=== PATIENT | female | born 2000 | race Caucasian/White ===

== ENCOUNTER 2020-12-03 17:25 | Emergency (ER) | payer OTHER, SELFPAY ==
[2020-12-03 17:43] VITALS: BP 126/77; PULSE 93; RESP 16; TEMP 36.9; O2SAT 100
--- NOTE | 2020-12-03 18:14 | ED.URI ---
HPI - URI/Sore Throat General Chief Complaint: Skin/Abscess/Foreign Body Stated Complaint: sun burn Time Seen by Provider: 12/03/20 18:14 Source: patient Mode of arrival: ambulatory Limitations: no limitations History of Present Illness HPI Narrative: Linh Sanchez is a 20 yo female with PMH anxiety who comes to express care with nasal congestion and sore throat x3 days she states she had a fever on and off. States cannot eat or drink because is difficult to swallow. She is a smoker but has not been smoking since she had a sore throat Related Data Allergies Allergy/AdvReac Type Severity Reaction Status Date / Time NKDA Allergy Unknown Uncoded 12/17/02 13:33 NKFA Allergy Unknown Uncoded 12/17/02 13:33 Review of Systems Review of Systems: Narrative: CONSTITUTIONAL: Denies fever, chills, sweats. EYES: Denies visual changes, redness, discharge. ENT: Denies rhinorrhea, has congestion, has sore throat, bilateral otalgia. CARDIOVASCULAR: Denies chest pain, palpitations, edema. RESPIRATORY: Denies dyspnea, wheezing, mild cough GASTROINTESTINAL: Denies abdominal pain, nausea, vomiting, diarrhea. GENITOURINARY: Denies dysuria, hematuria, abnormal discharge SKIN: Denies rash or itching. NEUROLOGIC: Denies numbness, or focal weakness. PSYCHIATRIC: Denies anxiety or depression. PMFSH Past Medical History Medical History No active medical problems Family History Family History (Updated 12/03/20 @ 18:20 by Diamond Zazueta CNP) Mother Hypertension Social History Social History (Updated 12/03/20 @ 18:20 by Diamond Zazueta CNP) Smoking packs per day: 1 Smoking cigarettes per day: 20.0 Smoking status: Current every day smoker Alcohol intake: current Gender identity (if verbalized by the patient): Female Comments At time of signature, I agree with nursing past medical, surgical, social and family history. There is no relevant family history pertinent to the presenting complaint. Exam Narrative: Exam Narrative: GENERAL: This is a well-nourished, well-developed patient, in mild distress. HEAD: normocephalic, atraumatic. EYES: Sclera clear/white. Vision is grossly intact. EARS: External ears normal, auditory canals erythema with fluid behind TMs. Hearing grossly intact. NOSE: External nose normal without nasal discharge, nares without redness, mild rhinorrhea. THROAT: Mucous membranes moist, posterior pharynx erythema with uvula very red NECK: Neck supple, tender submandibular lymph nodes that are quite large CARDIOVASCULAR: Regular rate and rhythm without murmurs, gallops, or rubs. RESPIRATORY: Clear to auscultation. Breath sounds equal bilaterally. No wheezes, rales, or rhonchi. GASTROINTESTINAL: Abdomen soft, SKIN: warm, intact with no suspicious lesions or rash, good texture and turgor. NEURO: awake, alert, and oriented to person, place and time. There were no obvious focal neurologic abnormalities. Steady gait EXTREMITIES: Normal range of motion. BACK: Nontender without deformity Course Course Emergency Course: [facility] of scratchy sore throat and sinus symptoms for the last 3 days they have gotten worse she cannot eat or drink says she is running subjective fever Strep test negative Covid test negative Throat is significantly swollen and as well as lymph nodes treated with started on clindamycin 300 mg 3 times daily x10 days, prednisone 40 mg x 5 days, cepacol lozenges Vital Signs Vital signs: Vital Signs Temperature 98.5 F 12/03/20 17:43 Pulse Rate 93 12/03/20 17:43 Respiratory Rate 16 12/03/20 17:43 Blood Pressure 126/77 12/03/20 17:43 Pulse Oximetry 100 12/03/20 17:43 Temperature 98.5 F 12/03/20 17:43 Pulse Rate 93 12/03/20 17:43 Respiratory Rate 16 12/03/20 17:43 Blood Pressure 126/77 12/03/20 17:43 Pulse Oximetry 100 12/03/20 17:43 MDM - URI/Sore Throat Differen
== END 2020-12-03 18:35 | disposition home or self-care (01) ==
PROVIDERS: Emergency Provider Nurse Practitioner
DX: J03.90 Acute tonsillitis, unspecified (principal); Z20.822 Contact with and (suspected) exposure to COVID-19; F17.210 Nicotine dependence, cigarettes, uncomplicated
CPT/HCPCS: 87081; 87426; 87880; 99213; C9803; G0463

== ENCOUNTER 2021-01-14 19:39 | Observation (INO) | payer OTHER, SELFPAY ==
[2021-01-14] VITALS (18 sets, daily range): BP systolic 124–161; BP diastolic 86–99; PULSE 84–119; RESP 12–24; TEMP 36.8; O2SAT 95–99
--- NOTE | 2021-01-14 19:58 | ECG_ITS ---
Measurements Intervals [place] Rate: 120 P: 82 LA: 139 QRS: 34 QRSD: 98 T: 50 QT: 319 QTc: 452 Interpretive Statements SINUS TACHYCARDIA BORDERLINE R WAVE PROGRESSION, ANTERIOR LEADS BORDERLINE T WAVE ABNORMALITY- INFERIOR LEADS BASELINE ARTIFACT- I, II, III, AVR, AVL, AVF, V1-V6 ABNORMAL ECG Electronically Signed On 01-14-2021 21:07:37 CDT by Rui Aceves D.O.
--- NOTE | 2021-01-14 20:03 | PC.NURSE ---
Patient states today I just wasnt feeling happy. And is why she took the meds and cut herself.
--- NOTE | 2021-01-14 20:04 | ED.OVERDOSE ---
HPI - Overdose General Chief Complaint: Overdose Stated Complaint: took a bunch of pills Time Seen by Provider: 01/14/21 20:01 Source: RN notes reviewed History of Present Illness HPI Narrative: Patient presents emergency department for overdose. Patient states that she overdosed on her prescription depression medication as well as prednisone approximately at 6:15 PM tonight. Patient states that she believes the prednisone tablets were 20 mg and she had them for her back pain and believes she took approximately 20 of them and then she states she is unsure of the name of her depression medication she states she recently moved from [place] to [place] getting the medicine [place]. She states she also did cut her right wrist with a razor blade she denies any other trauma or injury states she has tried to harm herself before in the past. Patient states she was sad today did not want a live anymore she denies any recent illness Related Data Allergies Allergy/AdvReac Type Severity Reaction Status Date / Time Penicillins Allergy Anaphylaxis Verified 01/14/21 19:59 Review of Systems Review of Systems: Narrative: Gen.: Denies fevers or chills Eyes: Denies eye pain or visual change ENT: Denies congestion Respiratory: Denies shortness of breath or cough CV: Denies chest pain or palpitations GI: Denies abdominal pain nausea, emesis or diarrhea Musculoskeletal: Denies back pain or muscle pain Neuro: Denies numbness, tingling, weakness or focal weakness Skin: See HPI Except as documented, all other systems reviewed and negative [facility] Past Medical History Medical History (Updated 01/14/21 @ 22:04 by Vidal Hensley DO) Depression No active medical problems Family History Family History (Updated 12/03/20 @ 18:20 by Diamond Zazueta CNP) Mother Hypertension Social History Social History Smoking packs per day: 1 Smoking cigarettes per day: 20.0 Smoking status: Current every day smoker Alcohol intake: current Substance use type: marijuana Gender identity (if verbalized by the patient): Female Exam Narrative: Exam Narrative: APPEARANCE: No acute distress, nontoxic, resting in bed EYES: EOMI HEENT: Normocephalic, atraumatic, OMM RESPIRATORY: No respiratory distress Clear to auscultation bilaterally with no rhonchi wheezing or rales. CARDIOVASCULAR: Regular rate and rhythm without murmurs rubs or gallops. ABDOMINAL: Soft, nontender, nondistended, no rebound or guarding MUSCULOSKELETAl: Moves all extremities. No clubbing, cyanosis or edema. NEURO: Awake and alert. Following commands, speech normal, no focal deficits SKIN:: Warm, dry. Numerous horizontal superficial abrasions over the right forearm that are linear no active bleeding or signs of infection radial pulse 2+ neurovascular intact PSYCHIATRIC: Flat affect, positive suicidal ideation denies homicidal ideation, Course Course Emergency Course: Reviewed home medications it appears the patient has been on Lexapro I asked her if this is what she took and she is unsure Poison control was notified recommends supportive care Called and discussed Dr. Patiño presentation and work-up agrees with admission ICU at this time Discussed with Dr. Espinoza presentation work-up agrees with admission at this time Discussed with patient and family results of workup and diagnosis. Discussed need for admission. Patient and family understand and agree to current treatment plan Vital Signs Vital signs: Vital Signs Temperature 98.3 F 01/14/21 19:42 Pulse Rate 119 H 01/14/21 19:42 Respiratory Rate 22 H 01/14/21 19:42 Blood Pressure 161/99 H 01/14/21 19:42 Pulse Oximetry 99 01/14/21 19:42 Temperature 98.3 F 01/14/21 19:42 Pulse Rate 119 H 01/14/21 19:42 Respiratory Rate 19 01/14/21 19:42 Blood Pressure 161/99 H 01/14/21 19:42 Pulse Oximetry 99 01/14/21 19:42 MDM - Overdose Lab Data Result
[2021-01-14 20:10] LABS: Basophils Absolute Auto 0.1 K/mm3 (0.0-0.1); Basophils Percent Auto 0.6 % (0.2-1.2); Eosinophils Absolute Auto 0.2 K/mm3 (0-0.3); Eosinophils Percent Auto 1.3 % (0-4.4); Hematocrit 45.9 % (37.0-47.0); Hemoglobin 15.2 g/dL (12.0-15.0); Immature Granulocyte Absolute 0.04 K/mm3 (0.00-0.031); Immature Granulocyte Percent A 0.3 % (0-0.5); Lymphocytes Absolute Auto 3.42 K/mm3 (0.9-3.2); Lymphocytes Percent Auto 23.3 % (18.3-44.2); Mean Corpuscular HGB Conc 33.1 g/dl (32-36); Mean Corpuscular Hemoglobin 29.5 pg (26-34); Mean Platelet Volume 9.4 fl (7.4-10.4); Monocytes Absolute Auto 1.1 K/mm3 (0.1-0.6); Monocytes Percent Auto 7.4 % (2.6-8.5); Neutrophils Absolute Auto 9.8 K/mm3 (1.3-6.7); Neutrophils Percent Auto 67.1 % (45.5-73.1); Platelet Count Result 473 k/mm3 (150-375); Red Blood Count 5.16 M/mm3 (4.2-5.4); Red Cell Distribution Width 12.7 % (11.5-14.5); White Blood Count 14.7 K/mm3 (4.5-10.0)
--- NOTE | 2021-01-14 20:13 | PC.NURSE ---
@ 2006-poison control - prednisone - no clinical problem, rare to od, zero affects suspected, expect stomach upset lexapro - max of 5 x therapeutic dose (if patient takes 1 tablet per day max dose is 5 tablets = toxicity) 5 hour peak 27-32 hour half life things to watch for - DANCING MASTER depression, coma, seizure, tachacardia, n/v, qt prolongation, widened QRS, HTN and Hypotension, seratonin toxicity we need to rule out co-ingestions - tylenol level, etoh, uds, ekg, night monitor, watch QT and QRS symptomatic support - may give fluids and pressers as needed, benzo - 1st line seizures, draw potassium and Magnesium level
[2021-01-14 20:21] LABS: Acetaminophen < 10 ug/mL (10-30); Ethanol < 10 mg/dL (<10); Salicylate < 1.0 mg/dL (2-20)
[2021-01-14 20:23] LABS: Alanine Aminotransferase 54 U/L (4-35); Albumin Level 4.7 g/dL (3.5-5.1); Alkaline Phosphatase 99 U/L (38-126); Anion Gap 13 mmol/L (8-16); Aspartate Amino Transferase 48 U/L (14-36); Bilirubin,Total 0.8 mg/dL (0.2-1.3); Blood Urea Nitrogen 12 mg/dL (7-17); Calcium 9.8 mg/dL (8.4-10.2); Carbon Dioxide 20 mmol/L (22-30); Chloride 108 mmol/L (98-107); Estimated Glomerular Filt Rate > 60; Glucose 84 mg/dL (65-110); Potassium 3.5 mmol/L (3.4-5.0); Sodium 141 mmol/L (137-145)
[2021-01-14 20:24] LABS: Add Urine Microscopic? YES; Appearance Urine Cloudy (Clear); Bacteria Urine Trace /hpf; Bilirubin Urine Negative (Negative); Blood Urine Negative (Negative); Color Urine Amber (Yellow); Glucose Urine UA Negative (Negative); Ketones Urine Trace mg/dL (Negative); Leukocyte Esterase Ur 1+ LEU/UL (Negative); Mucus Urine Heavy /lpf; Nitrate Urine Negative (Negative); Protein Urine 1+ mg/dL (Negative); Squamous Epithelial Cell Urine Many /hpf (Few); WBC Urine 16-20 /hpf
[2021-01-14] MEDS: SODIUM CHLORIDE 0.9% IV 1,000 ML 999 ML IV CONT (20:31)
[2021-01-14 20:51] LABS: Amphetamine Screen Urine Negative (Negative); Barbiturate Screen Urine Negative (Negative); Benzodiazepines Screen Urine Negative (Negative); Cannabinoid Screen Urine Positive (Negative); Cocaine Screen Urine Negative (Negative); Methadone Screen Urine Negative (Negative); Opiate Screen Urine Negative (Negative); Phencyclidine Screen Urine Negative (Negative)
[2021-01-14 20:52] LABS: Magnesium 2.1 mg/dL (1.6-2.3)
--- NOTE | 2021-01-14 20:55 | ECG_ITS ---
Measurements Intervals [place] Rate: 94 P: 50 [place]: 151 QRS: 4 QRSD: 108 T: 11 QT: 353 QTc: 444 Interpretive Statements SINUS RHYTHM INCOMPLETE RIGHT BUNDLE BRANCH BLOCK BORDERLINE R WAVE PROGRESSION, ANTERIOR LEADS BORDERLINE T WAVE ABNORMALITY- INFERIOR LEADS BORDERLINE ECG Electronically Signed On 01-14-2021 21:08:19 CDT by Rui Aceves D.O.
[2021-01-14] MEDS: TETANUS,DIPHTHERIA,AC PERTUSSIS ADULT (0.5 ML) BOOSTRIX IM (22:22)
--- NOTE | 2021-01-14 22:38 | PC.NURSE ---
poison control contacted us to review uds and ekg at this time. per poison control not at a risk for torsades as of right now.
[2021-01-15 00:12] LABS: Acetaminophen < 10 ug/mL (10-30); Salicylate < 1.0 mg/dL (2-20)
[2021-01-15 00:20] VITALS: BP 126/80; PULSE 81; RESP 18; TEMP 36.7; O2SAT 97
--- NOTE | 2021-01-15 00:25 | ADMGEN ---
This patient, Linh Sanchez, was admitted to Intensive Care Unit-7. Patient/family oriented to hospital policies and general routines including ID bracelet, bed and alarms, visiting hours, pain management, procedures, bathroom and other care routines, personal items, smoking policy, room service/diet, and visiting hours. Information on how to activate the Rapid Response Team has been discussed. Patient/Family are encouraged to report perceived risks to care and to ask questions if they do not understand what they are told or what they should do.
[2021-01-15 01:08] VITALS: BMI 43.0
[2021-01-15] MEDS: SODIUM CHLORIDE 0.9% IV 1,000 ML 999 ML IV CONT (01:21)
[2021-01-15 02:00] VITALS: BP 119/72; PULSE 84; RESP 22; O2SAT 96
[2021-01-15] MEDS: SODIUM CHLORIDE 0.9% IV 1,000 ML 125 ML IV CONT (02:25)
--- NOTE | 2021-01-15 03:16 | PM.IMHP ---
H&P: HPI History of Present Illness Date/Time: 01/15/21 03:16 Chief Complaint: overdose Narrative: 20-year-old female with past medical history anxiety and depression who presented to the ER after overdose of psychiatric medications in an attempt to harm herself. the patient reports that she has been under increased stress since she moved back from [place] Ten months ago. She reports that she was on some psychiatric medications that were prescribed to [place] up until 5 months ago. Those medications were working well but she does not know what the names of those medications were. She then had a script filled for Lexapro in June and August. She reports the Lexapro did not work. She still had about 12 pills of what ever antidepressant she was on from [place] and her cabinet. She reports that over the last couple of months she has been under more stress. She recently broke up with her boyfriend. Her and her mom have been fighting more. 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 She has gained 36 lb in the last 10 months. She snores heavily and has some daytime fatigue. Subsequently LE symptoms have added up in culminated in her suicidal gesture before coming to the hospital. She reports that she vomited shortly after taking the pills and there were pills and pill fragments in her emesis. She had also perform some superficial cuts to her right forearm. She does not have a history of cutting and was trying to work up the courage to harm herself. She has not had any further nausea or vomiting since presentation to the hospital. She is cognizant of her bad choice today and is eager to receive help. She wants to get involved in counseling and go back on some medications to help with her mood. She reports that her mother should know which medications she was on when she lived in [place]. She has given me permission to speak with her mother but, I I do not Wanna: Mother given the current hour. she reports that she has been drinking more alcohol than usual recently and has been drinking 2-3 shots of hard liquor every other day. She has been using marijuana every other day to treat her chronic back pain from her prior back surgery for scoliosis. she reports that her mom states that she snores loudly and her mom has noticed episodes of apnea. The snoring has gotten worse with her recent weight gain. She has never had a sleep study. Review of Systems Review of Systems: Narrative: 12 systems were reviewed with pertinent positives and negatives per HPI. Except as documented in the HPI, all other systems were reviewed and are negative. [facility] Past Medical History Medical History (Updated 01/15/21 @ 04:49 by Devorah Espinoza DO) Depression Obesity Scoliosis Spina bifida occulta Surgical History Surgical History (Updated 01/15/21 @ 04:49 by Devorah Espinoza DO) History of spinal fusion for scoliosis Family History Family History Mother Hypertension Social History Social History (Updated 01/15/21 @ 04:52 by Devorah Espinoza DO) Social History: She lives at home with her mother, grandmother and best friend. 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 She has smoked a half a pack per day since she was 16 years old. She drinks 2-3 shots of alcohol every other day. She uses marijuana every other day to assist With her chronic back pain. Primary care physician: None surrogate decision maker: Mother Smoking packs per day: 0.5 Smoking cigarettes per day: 10.0 Years smoked: 4 Smoking pack-years: 2.00 Smoking status: Current every day smoker Tobacco type: cigarettes Alcohol intake: current Drinks per week: 7 Substance use: current Substance use type: marijuana Gender identity (if verbalized by the patient): Female Spiritual care concerns: Yes Meds Home Medications and Allergies Home Medications Medication Instructions Recorded
[2021-01-15 04:00] VITALS: BP 111/60; PULSE 88; RESP 14; TEMP 36.7; O2SAT 98
--- NOTE | 2021-01-15 04:50 | ECG_ITS ---
Measurements Intervals [place] Rate: 84 P: 53 [place]: 159 QRS: 6 QRSD: 106 T: 15 QT: 368 QTc: 436 Interpretive Statements SINUS RHYTHM INCOMPLETE RIGHT BUNDLE BRANCH BLOCK BASELINE ARTIFACT- I, III, AVL BORDERLINE ECG Electronically Signed On 01-15-2021 10:12:07 CDT by Rui Aceves D.O.
[2021-01-15 05:37] LABS: Basophils Absolute Auto 0.1 K/mm3 (0.0-0.1); Basophils Percent Auto 0.6 % (0.2-1.2); Eosinophils Absolute Auto 0.3 K/mm3 (0-0.3); Eosinophils Percent Auto 2.6 % (0-4.4); Hematocrit 40.1 % (37.0-47.0); Hemoglobin 13.1 g/dL (12.0-15.0); Immature Granulocyte Absolute 0.02 K/mm3 (0.00-0.031); Immature Granulocyte Percent A 0.2 % (0-0.5); Lymphocytes Absolute Auto 3.14 K/mm3 (0.9-3.2); Mean Corpuscular HGB Conc 32.7 g/dl (32-36); Mean Corpuscular Hemoglobin 29.5 pg (26-34); Mean Corpuscular Volume 90.3 fl (80-100); Mean Platelet Volume 9.4 fl (7.4-10.4); Monocytes Absolute Auto 0.7 K/mm3 (0.1-0.6); Monocytes Percent Auto 6.9 % (2.6-8.5); Neutrophils Absolute Auto 5.7 K/mm3 (1.3-6.7); Neutrophils Percent Auto 57.7 % (45.5-73.1); Platelet Count Result 361 k/mm3 (150-375); Red Blood Count 4.44 M/mm3 (4.2-5.4); Red Cell Distribution Width 12.9 % (11.5-14.5); White Blood Count 9.8 K/mm3 (4.5-10.0)
[2021-01-15 05:49] LABS: Alanine Aminotransferase 42 U/L (4-35); Albumin Level 3.6 g/dL (3.5-5.1); Alkaline Phosphatase 60 U/L (38-126); Anion Gap 9 mmol/L (8-16); Aspartate Amino Transferase 28 U/L (14-36); Bilirubin,Total 0.8 mg/dL (0.2-1.3); Blood Urea Nitrogen 8 mg/dL (7-17); Calcium 8.6 mg/dL (8.4-10.2); Carbon Dioxide 21 mmol/L (22-30); Chloride 108 mmol/L (98-107); Estimated Glomerular Filt Rate > 60; Glucose 81 mg/dL (65-110); Potassium 3.3 mmol/L (3.4-5.0); Sodium 138 mmol/L (137-145)
[2021-01-15 06:00] VITALS: PULSE 79; RESP 18; O2SAT 97
[2021-01-15 08:00] VITALS: BP 142/81; PULSE 107; PULSE 76; RESP 20; TEMP 36.8; O2SAT 98
[2021-01-15] MEDS: POTASSIUM CHLORIDE 20 MEQ TABLET 40 MEQ PO (09:23)
--- NOTE | 2021-01-15 11:08 | PC.NURSE ---
Theresa RN from poison control called for update on patient; asked specifically about mentation status and vitals; patient A&Ox4 and gave last set of vitals; Theresa stated we are out of the peak window for lexapro so she closed this case but stated to call if we had any more questions or concerns.
--- NOTE | 2021-01-15 13:47 | WPDCNINT ---
Assessment and Plan Assessment and plan (1) Polysubstance overdose: Code(s): T50.901A - Poisoning by unspecified drugs, medicaments and biological substances, accidental (unintentional), initial encounter Status: Acute Assessment and Plan: patient claims to have taken prednisone 20 mg x 20 pills and unknown amount of her prescription depression medications, the name of which she does not recollect. But she did state that she was on Lexapro at some point - poison control was notified from the ER, recommendations were symptomatic management - patient is hemodynamically stable, awake, alert, oriented x3 - currently medically stable from my standpoint, care coordination and crisis management to evaluate the patient - she will need psychiatric treatment at a facility (2) Suicidal ideation: Code(s): R45.851 - Suicidal ideations Status: Acute Assessment and Plan: patient with polysubstance overdose and try to cut her right wrist, fortunately it was superficial which no damage to vascular or nerve structures - patient did receive a tetanus shot in the ER - continue suicide precautions - bedside sitter (3) Depression: Qualifiers: Depression Type: major depressive disorder Major depression recurrence: recurrent Active/Remission status: currently active Major depression episode severity: severe Psychotic features: without psychotic features Qualified Code(s): F33.2 - Major depressive disorder, recurrent severe without psychotic features Code(s): F32.9 - Major depressive disorder, single episode, unspecified Status: Acute Assessment and Plan: history of depression, patient will require psychiatric evaluation and treatment - she is willing to obtain help (4) Obesity: Code(s): E66.9 - Obesity, unspecified Status: Acute Assessment and Plan: chronic (5) Tobacco use: Code(s): Z72.0 - Tobacco use Status: Acute Assessment and Plan: counseled patient for cessation of tobacco use Additional Plan discussed with patient updated with her condition and plan of care. I answered all questions, she is willing to obtain psychiatric help for her depression and her suicidal attempt code status: Full code Critical care time spent: 39 minutes This dictation may have been done utilizing a voice recognition system. Attempts have been made to correct errors. However, there may be uncorrected grammatical, spelling, and recognition errors present. Due to a high probability of clinically significant, life threatening deterioration, the patient required my highest level of preparedness to intervene emergently and I personally spent this critical care time directly and personally managing the patient. This critical care time included obtaining a history; examining the patient; pulse oximetry; ordering and review of studies; arranging urgent treatment with development of a management plan; evaluation of patient's response to treatment; frequent reassessment; and discussions with other providers. It was exclusive of separately billable procedures and treating other patients and teaching time. Please see Assessment and Plan section and the rest of the note for further information on patient assessment and treatment Surgical Aides Teacher Consult Note Consult date: 01/15/21 Time Seen: 07:16 HPI: Linh Sanchez is a 20 year old female past medical history of depression, obesity, scoliosis, spina bifid occult, history of spinal fusion for scoliosis presented the ED on 01/14/2021 after she overdosed on her prescription depression medication along with prednisone. She took prednisone 20 mg x 20 pills, she does not remember the name of the depression medications that she overdosed on. She also tried to cut her right wrist with a razor blade. Patient undergoing a lot of stress after she broke up with her boyfriend, fights with her mother and also moved from [facility]
--- NOTE | 2021-01-15 15:22 | PM.IMPN ---
Progress Note: A&P Assessment and Plan (1) Polysubstance overdose: Code(s): T50.901A - Poisoning by unspecified drugs, medicaments and biological substances, accidental (unintentional), initial encounter Status: Acute Assessment and Plan: MEDICALLY CLEARED patient claims to have taken prednisone 20 mg x 20 pills and unknown amount of her prescription depression medications, the name of which she does not recollect. But she did state that she was on Lexapro at some point - poison control was notified from the ER, recommendations were symptomatic management - patient is hemodynamically stable, awake, alert, oriented x3 - currently medically stable from my standpoint, care coordination and crisis management to evaluate the patient - she will need psychiatric treatment at a facility (2) Suicidal ideation: Code(s): R45.851 - Suicidal ideations Status: Acute Assessment and Plan: CRISIS INTERVENTION EVALUATION patient with polysubstance overdose and try to cut her right wrist, fortunately it was superficial which no damage to vascular or nerve structures - patient did receive a tetanus shot in the ER - continue suicide precautions - bedside sitter (3) Depression: Qualifiers: Depression Type: major depressive disorder Major depression recurrence: recurrent Active/Remission status: currently active Major depression episode severity: severe Psychotic features: without psychotic features Qualified Code(s): F33.2 - Major depressive disorder, recurrent severe without psychotic features Code(s): F32.9 - Major depressive disorder, single episode, unspecified Status: Acute Assessment and Plan: history of depression, patient will require psychiatric evaluation and treatment - she is willing to obtain help (4) Obesity: Code(s): E66.9 - Obesity, unspecified Status: Acute Assessment and Plan: chronic (5) Tobacco use: Code(s): Z72.0 - Tobacco use Status: Acute Assessment and Plan: counseled patient for cessation of tobacco use Additional Plan discussed with patient updated with her condition and plan of care. I answered all questions, she is willing to obtain psychiatric help for her depression and her suicidal attempt code status: Full code Critical care time spent: 39 minutes This dictation may have been done utilizing a voice recognition system. Attempts have been made to correct errors. However, there may be uncorrected grammatical, spelling, and recognition errors present. Due to a high probability of clinically significant, life threatening deterioration, the patient required my highest level of preparedness to intervene emergently and I personally spent this critical care time directly and personally managing the patient. This critical care time included obtaining a history; examining the patient; pulse oximetry; ordering and review of studies; arranging urgent treatment with development of a management plan; evaluation of patient's response to treatment; frequent reassessment; and discussions with other providers. It was exclusive of separately billable procedures and treating other patients and teaching time. Please see Assessment and Plan section and the rest of the note for further information on patient assessment and treatment Subjective Date/time seen: 01/15/21 15:22 ON FINE Review of Systems Review of Systems: All systems reviewed & are unremarkable except as noted in HPI and below Exam Narrative: Exam Narrative: LAYING IN BED Const: General: comfortable and no acute distress HENMT: Mouth: Yes moist mucous membranes Eyes: Sclera: sclerae normal Pupils: Equal, round and reactive pupils present Neck: Neck: supple Thyroid: thyroid normal Lymphatic: lymphadenopathy not noted Resp: Auscultation: clear to auscultation bilaterally Cardio: Rate: regular rate Rhythm: regular rhythm GI: In
[2021-01-15 15:30] LABS: EDCOVIDSCREEN Negative (Negative)
[2021-01-15 16:00] VITALS: BP 135/76; PULSE 99; RESP 18; TEMP 36.9; O2SAT 99
--- NOTE | 2021-01-26 18:33 | PM.DS ---
DS: Admitting Diagnosis Admitting Diagnosis (1) Suicidal ideation: Code(s): R45.851 - Suicidal ideations Status: Acute (2) Depression: Qualifiers: Active/Remission status: currently active Depression Type: major depressive disorder Major depression episode severity: severe Major depression recurrence: recurrent Psychotic features: without psychotic features Qualified Code(s): F33.2 - Major depressive disorder, recurrent severe without psychotic features Code(s): F32.9 - Major depressive disorder, single episode, unspecified Status: Acute (3) Overdose of antidepressant: Qualifiers: Encounter type: initial encounter Injury intent: intentional self-harm Qualified Code(s): T43.202A - Poisoning by unspecified antidepressants, intentional self-harm, initial encounter Code(s): T43.201A - Poisoning by unspecified antidepressants, accidental (unintentional), initial encounter Status: Acute (4) Snoring: Code(s): R06.83 - Snoring Status: Acute (5) Obesity: Code(s): E66.9 - Obesity, unspecified Status: Acute DS: Discharge Diagnosis Discharge Diagnosis (1) Polysubstance overdose: Code(s): T50.901A - Poisoning by unspecified drugs, medicaments and biological substances, accidental (unintentional), initial encounter Status: Acute Assessment and Plan: MEDICALLY CLEARED patient claims to have taken prednisone 20 mg x 20 pills and unknown amount of her prescription depression medications, the name of which she does not recollect. But she did state that she was on Lexapro at some point - poison control was notified from the ER, recommendations were symptomatic management - patient is hemodynamically stable, awake, alert, oriented x3 - currently medically stable from my standpoint, care coordination and crisis management to evaluate the patient - she will need psychiatric treatment at a facility (2) Suicidal ideation: Code(s): R45.851 - Suicidal ideations Status: Acute Assessment and Plan: CRISIS INTERVENTION EVALUATION patient with polysubstance overdose and try to cut her right wrist, fortunately it was superficial which no damage to vascular or nerve structures - patient did receive a tetanus shot in the ER - continue suicide precautions - bedside sitter (3) Depression: Qualifiers: Active/Remission status: currently active Depression Type: major depressive disorder Major depression episode severity: severe Major depression recurrence: recurrent Psychotic features: without psychotic features Qualified Code(s): F33.2 - Major depressive disorder, recurrent severe without psychotic features Code(s): F32.9 - Major depressive disorder, single episode, unspecified Status: Acute Assessment and Plan: history of depression, patient will require psychiatric evaluation and treatment - she is willing to obtain help (4) Obesity: Code(s): E66.9 - Obesity, unspecified Status: Acute Assessment and Plan: chronic (5) Tobacco use: Code(s): Z72.0 - Tobacco use Status: Acute Assessment and Plan: counseled patient for cessation of tobacco use DS: Summary Hospital Course Reason for hospitalization: overdose Hospital Course: 20-year-old female with past medical history anxiety and depression who presented to the ER after overdose of psychiatric medications in an attempt to harm herself. the patient reports that she has been under increased stress since she moved back from [place] Ten months ago. She reports that she was on some psychiatric medications that were prescribed to [place] up until 5 months ago. Those medications were working well but she does not know what the names of those medications were. She then had a script filled for Lexapro in June and August. She reports the Lexapro did not work. She still had about 12 pills of what ever antidep
== END 2021-01-15 18:32 | disposition short-term general hospital (02) ==
LOC: ANHED 22:04 → ANHICU 23:22
PROVIDERS: Internal Medicine; Admitting Provider Internal Medicine; Emergency Provider Emergency Medicine; Visit Provider Internal Medicine
DX: T43.202A Poisoning by unspecified antidepressants, intentional self-harm, initial encounter (principal); T14.91XA Suicide attempt, initial encounter; F41.8 Other specified anxiety disorders; R06.83 Snoring; F17.210 Nicotine dependence, cigarettes, uncomplicated; F33.2 Major depressive disorder, recurrent severe without psychotic features; F12.90 Cannabis use, unspecified, uncomplicated; E66.9 Obesity, unspecified; S60.811A Abrasion of right wrist, initial encounter; Y28.8XXA Contact with other sharp object, undetermined intent, initial encounter; Z20.822 Contact with and (suspected) exposure to COVID-19; Z23 Encounter for immunization
CPT/HCPCS: 36415; 80053; 80307; 81001; 81025; 83735; 84443; 85025; 87077; 87086; 87088; 87186; 87426; 90471; 90715; 93005; 99285; A9270; C9803; G0378; G0379; J7030

== ENCOUNTER 2021-04-28 16:45 | Emergency (ER) | payer OTHER, SELFPAY ==
[2021-04-28 16:52] VITALS: BP 117/74; PULSE 103; RESP 16; TEMP 37.3; O2SAT 99
[2021-04-28 16:59] VITALS: BP 117/74; PULSE 103; RESP 16; TEMP 37.3; O2SAT 99
--- NOTE | 2021-04-28 16:59 | ED.URI ---
HPI - URI/Sore Throat General Chief Complaint: Upper Respiratory Infection Stated Complaint: congestion Time Seen by Provider: 04/28/21 16:55 Source: patient and RN notes reviewed Mode of arrival: ambulatory Limitations: no limitations History of Present Illness HPI Narrative: Linh is a 20-year-old female patient who ambulated [facility] the [facility]. Patient states she has a 7-day history of severe nasal congestion, sinus drainage, ear pain. Patient states she has been using NyQuil at home for treatment. Patient states she had a low-grade fever at home. Patient was treated last weekend at a different [facility]. Patient states she was not given any medications. Her Covid test was negative. MD elicited complaint: nasal congestion Related Data Home Medications Medication Instructions Recorded Confirmed No Home Medications 01/15/21 04/28/21 Allergies Allergy/AdvReac Type Severity Reaction Status Date / Time Penicillins Allergy Anaphylaxis Verified 04/28/21 16:48 Review of Systems Review of Systems: CONSTITUTIONAL: Denies body aches, fever, chills, or sweats. EYES: Denies visual changes, redness, or discharge. ENT: Denies rhinorrhea,+ congestion, sore throat, + otalgia. CARDIOVASCULAR: Denies chest pain, palpitations, or edema. RESPIRATORY: +cough denies dyspnea. GASTROINTESTINAL: Denies abdominal pain, nausea, vomiting, or diarrhea. GENITOURINARY: Denies dysuria or hematuria. SKIN: Denies rash, itching, or wounds. MUSCULOSKELETAL: Denies back pain, joint pain, or myalgia. NEUROLOGIC: Denies headache, numbness, tingling, or weakness. PSYCH: Denies depression or anxiety. All systems reviewed & are unremarkable except as noted in HPI and below PMFSH Past Medical History Medical History Depression Obesity Scoliosis Spina bifida occulta Surgical History Surgical History History of spinal fusion for scoliosis Family History Family History Mother Hypertension Social History Social History Social History: She lives at home with her mother, grandmother and best friend. 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 She has smoked a half a pack per day since she was 16 years old. She drinks 2-3 shots of alcohol every other day. She uses marijuana every other day to assist With her chronic back pain. Primary care physician: Dasia surrogate decision maker: Mother Smoking packs per day: 0.5 Smoking cigarettes per day: 10.0 Years smoked: 4 Smoking pack-years: 2.00 Smoking status: Current every day smoker Tobacco type: cigarettes Alcohol intake: current Drinks per week: 7 Substance use: current Substance use type: marijuana Gender identity (if verbalized by the patient): Female Spiritual care concerns: Yes Comments At time of signature, I have reviewed and agree with nursing past medical, surgical, social and family history unless otherwise noted. Please see nursing chart for further information. There is no relevant family history pertinent to the presenting complaint Exam Narrative: GENERAL: Well-appearing, well-nourished, and in no acute distress. HEAD: Normocephalic, atraumatic. EYES: EOMI. No redness or drainage. Conjunctivae normal. ENT: Mucous membranes pink and moist. Nasal membranes erythemic with clear rhinorrhea, posterior pharynx erythemic with moderate postnasal drainage minimal erythema without exudate.. Uvula midline. Bilateral tympanic membranes are opaque with moderate bulging no erythema noted NECK: Normal AROM. Supple. Left anterior cervical lymphadenopathy. CHEST: No respiratory distress. Clear to auscultation. MUSCULOSKELETAL: No bony tenderness. EXTREMITIES: Normal range of motion. No edema. SKIN: Warm, dry, no rash. Capillary refill no
== END 2021-04-28 17:10 | disposition home or self-care (01) ==
PROVIDERS: Emergency Provider Nurse Practitioner Family
DX: J06.9 Acute upper respiratory infection, unspecified (principal); F17.219 Nicotine dependence, cigarettes, with unspecified nicotine-induced disorders; E66.9 Obesity, unspecified; M41.9 Scoliosis, unspecified; Q76.0 Spina bifida occulta
CPT/HCPCS: 99211; G0463

== ENCOUNTER 2021-07-25 13:42 | Emergency (ER) | payer OTHER, SELFPAY ==
[2021-07-25 13:50] VITALS: BP 125/89; PULSE 89; RESP 16; TEMP 37.6; O2SAT 99
--- NOTE | 2021-07-25 14:20 | ED.URI ---
HPI - URI/Sore Throat General Chief Complaint: Upper Respiratory Infection Stated Complaint: sore throat Time Seen by Provider: 07/25/21 14:26 Source: patient Mode of arrival: ambulatory Limitations: no limitations History of Present Illness HPI Narrative: 20-year-old female presents to [facility] with bilateral ear pain, fever, sinus congestion with drainage and sore throat with some muscle aches since Monday. Patient reports she has not had her Covid vaccinations, did take flu shot this year. Patient reports that she has had history of previous ear infections and did have tubes when was child. Patient reports that she has been taking some Tylenol and Ibuprofen for her discomfort and fevers MD elicited complaint: fever, cough, sore throat and other (ear pain) Related Data Allergies Allergy/AdvReac Type Severity Reaction Status Date / Time Penicillins Allergy Anaphylaxis Verified 04/28/21 16:48 Review of Systems Review of Systems: CONSTITUTIONAL: Positive fever, chills, or sweats. EYES: Denies visual changes, redness, or discharge. ENT: Positive for rhinorrhea, congestion, sore throat,bilateral otalgia. CARDIOVASCULAR: Denies chest pain, palpitations, or edema. RESPIRATORY: Denies cough or dyspnea. GASTROINTESTINAL: Denies abdominal pain, nausea, vomiting, or diarrhea. GENITOURINARY: Denies dysuria or hematuria. SKIN: Denies rash or itching. MUSCULOSKELETAL: Denies back pain, joint pain, positive for body aches NEUROLOGIC: Denies headache, numbness, or weakness. PSYCHIATRIC:Positive history of anxiety or depression. All systems reviewed & are unremarkable except as noted in HPI and below PMFSH Past Medical History Medical History Depression Obesity Scoliosis Spina bifida occulta Surgical History Surgical History History of spinal fusion for scoliosis Family History Family History Mother Hypertension Social History Social History Social History: She lives at home with her mother, grandmother and best friend. 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 She has smoked a half a pack per day since she was 16 years old. She drinks 2-3 shots of alcohol every other day. She uses marijuana every other day to assist With her chronic back pain. Primary care physician: None surrogate decision maker: Mother Smoking packs per day: 0.5 Smoking cigarettes per day: 10.0 Years smoked: 4 Smoking pack-years: 2.00 Smoking status: Current every day smoker Tobacco type: cigarettes Alcohol intake: current Drinks per week: 7 Substance use: current Substance use type: marijuana Gender identity (if verbalized by the patient): Female Spiritual care concerns: Yes Comments At time of signature, agree with nursing past medical, surgical, social and family history. There is no relevant family history pertinent to the presenting complaint Exam Narrative: GENERAL: Ill-appearing, well-nourished, and in no acute distress. HEAD: Normocephalic, atraumatic. EYES: PERRLA and EOMI. ENT: Nares red with clear rhinorrhea no epistaxis. Mucous membranes moist. Bilateral TM;s red with bulging noted no drainage, throat red with no lesions or exudates, no tonsil swelling, post nasal drainage noted. NECK: Supple.no lymphadenopathy CHEST: Clear to auscultation. No respiratory distress.SAO2 99% on room air HEART: Regular rate and rhythm. No murmur heard. Normal peripheral pulses. ABDOMEN: Soft, nontender, nondistended, normal active bowel sounds. EXTREMITIES: Normal range of motion. No edema. SKIN: Warm, dry, no rash. NEURO: No focal deficits. Alert and oriented x3. Course Course Level of Care: [facility] Visit Vital Signs Vital signs: Vital Signs Temperature 37.6 C 07/25/21 13:50 Pulse Rate 89
== END 2021-07-25 15:46 | disposition home or self-care (01) ==
PROVIDERS: Emergency Provider Registered Nurse
DX: U07.1 COVID-19 (principal); H66.93 Otitis media, unspecified, bilateral; F17.210 Nicotine dependence, cigarettes, uncomplicated; E66.9 Obesity, unspecified; Q76.0 Spina bifida occulta; M41.9 Scoliosis, unspecified
CPT/HCPCS: 87426; 99213; C9803; G0463

== ENCOUNTER 2021-09-22 08:15 | Emergency (ER) | payer OTHER, SELFPAY ==
[2021-09-22 08:25] VITALS: BP 125/87; PULSE 91; RESP 18; TEMP 37.1; O2SAT 99
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
--- NOTE | 2021-09-22 08:55 | ECG_ITS ---
Measurements Intervals [place] Rate: 94 P: 46 NM: 145 QRS: 6 QRSD: 112 T: 27 QT: 356 QTc: 445 Interpretive Statements SINUS RHYTHM INCOMPLETE RIGHT BUNDLE BRANCH BLOCK [90+ ms QRS DURATION, TERMINAL R IN V1/V2, 40+ ms S IN I/aVL/V4/V5/V6] BORDERLINE ECG COMPARED TO ECG 01/15/2021 10:01:54 NO SIGNIFICANT CHANGES Electronically Signed On 09-22-2021 13:39:20 CDT by Quinn Urrutia M.D.
[2021-09-22] MEDS: ACETAMINOPHEN 500 MG TABLET 1000 MG PO (08:58)
== END 2021-09-22 09:15 | disposition home or self-care (01) ==
PROVIDERS: Emergency Provider Nurse Practitioner Family
DX: F41.9 Anxiety disorder, unspecified (principal); R04.0 Epistaxis; W19.XXXA Unspecified fall, initial encounter; R51.9 Headache, unspecified; F32.A Depression, unspecified; E66.9 Obesity, unspecified; M41.9 Scoliosis, unspecified; Q76.0 Spina bifida occulta
CPT/HCPCS: 93005; 99213; A9270; G0463

== ENCOUNTER 2021-10-13 18:54 | Emergency (ER) | payer OTHER, SELFPAY ==
--- NOTE | ~2021-10-13 | XR_ITS ---
EXAMINATION: XR foot RT min 3V DATE: 10/13/2021 19:13 INDICATION: Right foot pain TECHNIQUE: Dorsoplantar, lateral, and 2 oblique views of the right foot were obtained. COMPARISON: None. FINDINGS: Bone alignment is normal. There is no fracture. There is dorsal soft tissue swelling of the foot. IMPRESSION: 1. No acute osseous abnormality. Reviewed, dictated and finalized at location F.
[2021-10-13 19:01] VITALS: BP 152/82; PULSE 112; RESP 16; TEMP 37.7; O2SAT 100
--- NOTE | 2021-10-13 19:14 | ED.LOWEXIN ---
HPI - Extremity Injury (Lower) General Chief Complaint: Extremity Injury, Lower Stated Complaint: Right Foot Injury Time Seen by Provider: 10/13/21 19:15 Source: patient Mode of arrival: ambulatory Limitations: no limitations History of Present Illness HPI Narrative: 21-year-old female presenting for complaint of right foot pain after injury this evening. She states she dropped a couch on her foot about 30 minutes [facility]. Small abrasion at the dorsal surface. She states I know it is not broken. She ambulated into the office but states she hopped on it. Rates pain 8 out of 10. Did not take anything prior for pain, stating I did not think it would help. Endorses pain with any movement. Related Data Allergies Allergy/AdvReac Type Severity Reaction Status Date / Time Penicillins Allergy Anaphylaxis Verified 10/13/21 19:20 Review of Systems Review of Systems: CONSTITUTIONAL: Denies body aches, fever, chills EYES: Denies visual changes ENT: Denies rhinorrhea, congestion CARDIOVASCULAR: Denies chest pain, palpitations, or edema. RESPIRATORY: Denies cough or dyspnea. GASTROINTESTINAL: Denies abdominal pain, nausea, vomiting, or diarrhea. SKIN: Denies rash, itching, or wounds. MUSCULOSKELETAL: right foot pain NEUROLOGIC: Denies headache, numbness, tingling, or weakness. PSYCH: Denies depression or anxiety. All systems reviewed & are unremarkable except as noted in HPI and below PMFSH Past Medical History Medical History Depression Obesity Scoliosis Spina bifida occulta Surgical History Surgical History History of spinal fusion for scoliosis Family History Family History Mother Hypertension Social History Social History Social History: She lives at home with her mother, grandmother and best friend. 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 She has smoked a half a pack per day since she was 16 years old. She drinks 2-3 shots of alcohol every other day. She uses marijuana every other day to assist With her chronic back pain. Primary care physician: None surrogate decision maker: Mother Smoking packs per day: 0.5 Smoking cigarettes per day: 10.0 Years smoked: 4 Smoking pack-years: 2.00 Smoking status: Current every day smoker Tobacco type: cigarettes Alcohol intake: current Drinks per week: 7 Substance use: current Substance use type: marijuana Gender identity (if verbalized by the patient): Female Spiritual care concerns: Yes Comments At time of signature, I have reviewed and agree with nursing past medical, surgical, social and family history unless otherwise noted. Please see nursing chart for further information. There is no relevant family history pertinent to the presenting complaint Exam Narrative: GENERAL: Appears in pain HEAD: Normocephalic, atraumatic. EYES: conjunctivae clear NECK: Supple. CHEST: Speaks in full sentences. No respiratory distress. HEART: Regular rate and rhythm. Normal and equal peripheral pulses. EXTREMITIES: Right foot abrasion at dorsal surface approx 0.5cm diameter, no active drainage, mild swelling to dorsal surface, extremely tender with minimal palpation. Decreased ROM to ankle due to pain. No obvious deformity; alignment normal, pulse palpable and equal bilaterally, skin warm, dry, pink. Capillary refill less than 3 seconds. SKIN: Warm, dry, no rash. NEURO: Alert and oriented x3. PSYCH: Normal mood and affect Course Course Emergency Course: Patient is aware of diagnosis, understands and agrees to treatment plan. Anticipatory guidance given. Patient agrees to follow-up as directed and is aware of reasons to seek care at the emergency department. Portions of this record may have been created with voice recogniti
== END 2021-10-13 20:09 | disposition home or self-care (01) ==
PROVIDERS: Emergency Provider Nurse Practitioner Family
DX: S90.31XA Contusion of right foot, initial encounter (principal); W20.8XXA Other cause of strike by thrown, projected or falling object, initial encounter; S90.811A Abrasion, right foot, initial encounter; F17.210 Nicotine dependence, cigarettes, uncomplicated; E66.9 Obesity, unspecified; Z68.41 Body mass index [BMI] 40.0-44.9, adult; M41.9 Scoliosis, unspecified; Q76.0 Spina bifida occulta; F12.90 Cannabis use, unspecified, uncomplicated
CPT/HCPCS: 73630; 99213; G0463

== ENCOUNTER 2022-02-28 15:22 | Emergency (ER) | payer OTHER, SELFPAY ==
--- NOTE | ~2022-02-28 | XR_ITS ---
EXAMINATION: XR chest 2V Exam Date/Time: 02/28/2022 16:05 CDT HISTORY: COUGH WITH WHEEZING Comparison: None available. RESULT: Lines, tubes, and devices: None. Lungs and pleura: Perihilar and lower lung reticular opacities with cuffing. No focal consolidation. Cardiomediastinal silhouette: Stable. Other: Right thoracolumbar fusion ye fracture. IMPRESSION: Fractured right thoracolumbar fusion ye, correlate with back pain/tenderness. Pulmonary opacities ma y represent bronchiolitis, as can be seen with atypical infection, asthma, aspiration, and small airw ays disease. Reviewed, dictated and finalized at location K. IMPRESSION: Fractured right thoracolumbar fusion ye, correlate with back pain/tenderness. Pulmonary opacities may represent bronchiolitis, as can be seen with atypical i nfection, asthma, aspiration, and small airways disease.
[2022-02-28 15:42] VITALS: BP 149/105; PULSE 97; RESP 18; TEMP 38; O2SAT 99
--- NOTE | 2022-02-28 16:02 | ED.GENADULT ---
HPI - General Adult General Chief complaint: Upper Respiratory Infection Stated complaint: sore throat Source: patient Mode of arrival: ambulatory Limitations: no limitations History of Present Illness HPI narrative: Patient presents for evaluation of sick symptoms for the last 3 days. Symptoms include hot flashes, chills, sinus congestion, sore throat, productive cough of yellow sputum, yellow nasal drainage, shortness of breath, wheezing and an episode of vomiting secondary to a coughing episode. She denies any chest pain, nausea or diarrhea. No recent sick contacts to her knowledge. She has had COVID in the past. She has not received COVID vaccination. She smokes a few cigarettes per day. She also smokes marijuana for low back pain. She took dayquil without considerable improvement in her symptoms. Related Data Home Medications Medication Instructions Recorded Confirmed sertraline 50 mg tablet (Zoloft) 50 mg PO DAILY 02/28/22 02/28/22 Allergies Allergy/AdvReac Type Severity Reaction Status Date / Time Penicillins Allergy Anaphylaxis Verified 02/28/22 15:44 Review of Systems Review of Systems: CONSTITUTIONAL: Reports hot flashes and chills. EYES: Denies visual changes, redness, or discharge. ENT: Reports sore throat, nasal congestion, yellow drainage from the nares. Denies otalgia. CARDIOVASCULAR: Denies chest pain, palpitations, or edema. RESPIRATORY: Reports productive cough of yellow sputum with shortness of breath. Reports wheezing. GASTROINTESTINAL: Reports 1 episode of vomiting. Denies abdominal painor diarrhea. GENITOURINARY: Denies dysuria or hematuria. SKIN: Denies rash or itching. MUSCULOSKELETAL: Chronic low back pain, unchanged. Denies joint pain, or myalgia. NEUROLOGIC: Denies headache, numbness, dizziness, or weakness. PSYCHIATRIC: Denies anxiety or depression. [facility] Past Medical History Medical History Depression Obesity Scoliosis Spina bifida occulta Surgical History Surgical History History of spinal fusion for scoliosis Family History Family History Mother Hypertension Social History Social History Social History: She lives at home with her mother, grandmother and best friend. 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 She has smoked a half a pack per day since she was 16 years old. She drinks 2-3 shots of alcohol every other day. She uses marijuana every other day to assist With her chronic back pain. Primary care physician: None surrogate decision maker: Mother Smoking packs per day: 0.25 Smoking cigarettes per day: 5.0 Years smoked: 4 Smoking pack-years: 1.00 Smoking status: Current every day smoker Tobacco type: cigarettes Alcohol intake: current Drinks per week: 7 Substance use: current Substance use type: marijuana Gender identity (if verbalized by the patient): Female Spiritual care concerns: Yes Exam Narrative: GENERAL: Well-appearing, well-nourished, and in no acute distress. HEAD: Normocephalic, atraumatic. EYES: PERRLA and EOMI. ENT: Nares clear, no rhinorrhea or epistaxis. Mucous membranes moist. Oropharynx without tonsillar hypertrophy exudate or other lesions. Bilateral TMs pearly prince with some scarring noted NECK: Supple. No adenopathy or masses. No carotid bruits or JVD CHEST: Wheezing and rales noted diffusely in anterior and posterior lung [place]. HEART: Regular rate and rhythm. No murmur heard. Normal peripheral pulses. ABDOMEN: Soft, nontender, nondistended, normal active bowel sounds. EXTREMITIES: Normal range of motion. No edema. SKIN: Warm, dry, no rash. NEURO: No focal deficits. Alert and oriented x3. PSYCH: Normal mood and affect. Course Course Emergency Course: This i
[2022-02-28] MEDS: methylPREDNISolone SOD SUCC 125 MG VIAL IM (16:16)
[2022-02-28] MEDS: ALBUTEROL SULFATE NEB 2.5 MG/3 ML INH INHALATION (16:18)
[2022-02-28] MEDS: IPRATROPIUM BR 0.02% INH SOLN 0.5 MG/2.5 ML VIAL INHALATION (16:18)
== END 2022-02-28 17:30 | disposition home or self-care (01) ==
PROVIDERS: Emergency Provider Nurse Practitioner; PCP Emergency Medicine
DX: J18.9 Pneumonia, unspecified organism (principal); J02.0 Streptococcal pharyngitis; T84.216A Breakdown (mechanical) of internal fixation device of vertebrae, initial encounter; Y79.8 Miscellaneous orthopedic devices associated with adverse incidents, not elsewhere classified; Z20.822 Contact with and (suspected) exposure to COVID-19; F17.210 Nicotine dependence, cigarettes, uncomplicated; F12.90 Cannabis use, unspecified, uncomplicated; E66.9 Obesity, unspecified; Z68.41 Body mass index [BMI] 40.0-44.9, adult; M41.9 Scoliosis, unspecified; Q76.0 Spina bifida occulta; F32.A Depression, unspecified
CPT/HCPCS: 71046; 87081; 87147; 87426; 87804; 87880; 94640; 96372; 99213; C9803; G0463; J2930

== ENCOUNTER 2022-03-02 23:39 | Emergency (ER) | payer OTHER, SELFPAY ==
--- NOTE | ~2022-03-02 | XR_ITS ---
EXAMINATION: XR chest 1V portable DATE: 03/03/2022 00:12 INDICATION: Pneumonia. Cough. TECHNIQUE: A single frontal view of the chest was obtained on 2 radiographs. COMPARISON: Chest 2 views 02/28/2022 FINDINGS: Sensitivity is decreased by obesity. The chest demonstrates clear lungs without pneumonia, pleural effusion, or pneumothorax. The heart size is normal. There are changes of posterior fusion pr ocedure in thoracolumbar spine. IMPRESSION: 1. No acute cardiopulmonary disease. Reviewed, dictated and finalized at location A.
[2022-03-02 23:42] VITALS: BP 124/82; PULSE 122; RESP 24; TEMP 36.5; O2SAT 98
[2022-03-02 23:53] VITALS: PULSE 128; RESP 20; O2SAT 98
[2022-03-02 23:54] VITALS: BP 144/101; PULSE 132; RESP 20; O2SAT 98
[2022-03-03] VITALS (25 sets, daily range): BP systolic 115–173; BP diastolic 65–115; PULSE 109–137; RESP 12–30; O2SAT 89–100
[2022-03-03] MEDS: SODIUM CHLORIDE 0.9% IV 1,000 ML 999 ML IV CONT ×2 (00:03→01:52)
[2022-03-03 00:12] LABS: Basophils Absolute Auto 0.1 K/mm3 (0.0-0.1); Basophils Percent Auto 0.3 % (0.2-1.2); Hematocrit 41.1 % (37.0-47.0); Hemoglobin 13.9 g/dL (12.0-15.0); Immature Granulocyte Absolute 0.12 K/mm3 (0.00-0.031); Immature Granulocyte Percent A 0.6 % (0-0.5); Lymphocytes Absolute Auto 2.73 K/mm3 (0.9-3.2); Lymphocytes Percent Auto 12.8 % (18.3-44.2); Mean Corpuscular HGB Conc 33.8 g/dl (32-36); Mean Corpuscular Hemoglobin 29.8 pg (26-34); Mean Corpuscular Volume 88.2 fl (80-100); Mean Platelet Volume 9.5 fl (7.4-10.4); Monocytes Absolute Auto 1.1 K/mm3 (0.1-0.6); Monocytes Percent Auto 5.3 % (2.6-8.5); Neutrophils Absolute Auto 17.3 K/mm3 (1.3-6.7); Platelet Count Result 395 k/mm3 (150-375); Red Blood Count 4.66 M/mm3 (4.2-5.4); Red Cell Distribution Width 13.2 % (11.5-14.5); White Blood Count 21.3 K/mm3 (4.5-10.0)
[2022-03-03] MEDS: ALBUTEROL SULFATE NEB 2.5 MG/3 ML INH 5 MG INHALATION ×2 (00:12→00:52)
[2022-03-03] MEDS: ONDANSETRON HCL ODT 4 MG TABLET PO (00:13)
[2022-03-03 00:27] LABS: Alanine Aminotransferase 40 U/L (6-35); Albumin Level 4.5 g/dL (3.5-5.1); Alkaline Phosphatase 63 U/L (38-126); Anion Gap 10 mmol/L (8-16); Aspartate Amino Transferase 29 U/L (14-36); Bilirubin,Total 0.3 mg/dL (0.2-1.3); Blood Urea Nitrogen 15 mg/dL (7-17); Calcium 9.5 mg/dL (8.4-10.2); Carbon Dioxide 20 mmol/L (22-30); Chloride 109 mmol/L (98-107); Estimated Glomerular Filt Rate > 60; Glucose 113 mg/dL (65-110); Potassium 3.9 mmol/L (3.4-5.0); Sodium 139 mmol/L (137-145)
[2022-03-03 00:28] LABS: Lactic Acid Reflex 1.4 mmol/L (0.7-2.0)
--- NOTE | 2022-03-03 00:39 | ED.SOB ---
HPI - SOB/Dyspnea General Chief Complaint: Shortness of Breath/Dyspnea Stated Complaint: dx strep and pneumonia x2 days Time Seen by Provider: 03/02/22 23:49 History of Present Illness HPI Narrative: This is a 21-year-old female with past medical history of hypothyroidism seen 2 days ago for cough, who returns emergency department. She states she has continued to cough with approximately 4 episodes of posttussive vomiting, has some chest pressure, and feels worse. She denies blood with cough or loss of consciousness. Related Data Home Medications Medication Instructions Recorded Confirmed sertraline 50 mg tablet (Zoloft) 50 mg PO DAILY 02/28/22 02/28/22 Allergies Allergy/AdvReac Type Severity Reaction Status Date / Time Penicillins Allergy Anaphylaxis Verified 03/02/22 23:46 Review of Systems Review of Systems: CONSTITUTIONAL: fever, chills, or sweats. EYES: Denies visual changes, redness, or discharge. ENT: congestion, Denies rhinorrhea, sore throat, or otalgia. CARDIOVASCULAR: Sensation of racing heart, denies chest pain, palpitations, or edema. RESPIRATORY: Persistent cough, denies dyspnea. GASTROINTESTINAL: Mild abdominal pain, vomiting without blood, denies diarrhea. GENITOURINARY: Denies dysuria or hematuria. SKIN: Denies rash or itching. MUSCULOSKELETAL: Denies back pain, joint pain, or myalgia. NEUROLOGIC: Denies headache, numbness, dizziness, or weakness. PSYCHIATRIC: Denies anxiety or depression. [facility] Past Medical History Medical History Depression Obesity Scoliosis Spina bifida occulta Surgical History Surgical History History of spinal fusion for scoliosis Family History Family History Mother Hypertension Social History Social History Social History: She lives at home with her mother, grandmother and best friend. 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 She has smoked a half a pack per day since she was 16 years old. She drinks 2-3 shots of alcohol every other day. She uses marijuana every other day to assist With her chronic back pain. Primary care physician: None surrogate decision maker: Mother Smoking packs per day: 0.25 Smoking cigarettes per day: 5.0 Years smoked: 4 Smoking pack-years: 1.00 Smoking status: Current every day smoker Tobacco type: cigarettes Alcohol intake: current Drinks per week: 7 Substance use: current Substance use type: marijuana Gender identity (if verbalized by the patient): Female Spiritual care concerns: Yes Exam Narrative: GENERAL: Well-developed, well-nourished, appears uncomfortable. HEAD: Normocephalic, atraumatic. EYES: PERRLA and EOMI. ENT: Nares clear, no rhinorrhea or epistaxis. Mucous membranes moist. Oropharynx without tonsillar hypertrophy exudate or other lesions. NECK: Supple. No adenopathy or masses. No carotid bruits or JVD CHEST: Bilateral wheeze with normal aeration, intermittent nonproductive cough, no respiratory distress. No rhonchi HEART: Regular rate and rhythm. No murmur heard. Normal peripheral pulses. ABDOMEN: Soft, nontender, nondistended, normal active bowel sounds. EXTREMITIES: Normal range of motion. No edema. SKIN: Warm, dry, no rash. NEURO: No focal deficits. Alert and oriented x3. PSYCH: Normal mood and affect. Course Course Emergency Course: 01:56 - Reassessed patient, she states she feels improved after a second albuterol treatment. Wheezing resolved. Heart rate decreased from 130s to the 110s after initial liter of IV fluids. She is currently in the 120s after the second albuterol treatment. Wells Score 1.5 (low risk) D-dimer negative, I do not suspect PE. 02:53 - The patient states she feels significantly improved and requests discharge
[2022-03-03] MEDS: PROCHLORPERAZINE EDISYLATE 10 MG/2 ML VIAL IV PUSH (01:52)
[2022-03-03 01:55] LABS: D Dimer < 0.27 ug/mL (<0.48)
== END 2022-03-03 03:11 | disposition home or self-care (01) ==
PROVIDERS: Emergency Provider Preventive Medicine Aerospace Medicine; PCP Emergency Medicine
DX: J18.9 Pneumonia, unspecified organism (principal); R06.2 Wheezing; E03.9 Hypothyroidism, unspecified; F32.A Depression, unspecified; Q76.0 Spina bifida occulta; E66.9 Obesity, unspecified; Z68.42 Body mass index [BMI] 45.0-49.9, adult; F17.210 Nicotine dependence, cigarettes, uncomplicated
CPT/HCPCS: 36415; 71045; 80053; 83605; 85025; 85380; 94640; 96361; 96365; 96375; 99285; A9270; J0131; J0780; J7030

== ENCOUNTER 2022-11-11 18:54 | Emergency (ER) | payer OTHER, SELFPAY ==
--- NOTE | ~2022-11-11 | XR_ITS ---
EXAMINATION: XR thoracic spine 2V, XR lumbar spine 2-3V DATE: 11/11/2022 20:09 INDICATION: Back pain post lifting boxes TECHNIQUE: 1. One AP, lateral and lateral swimmer's views of the thoracic spine were obtained. 2. AP, lateral and coned-down lateral lumbosacral views of the lumbar spine were obtained. COMPARISON: Chest radiograph dated 02/28/2022 FINDINGS: 18 degree thoracic dextroscoliosis measured between T4 and T8. There is a slight lordosis to the mid lumbar spine. Instrumented thoracolumbar posterior spinal fusion with bilateral vertical ye and pedi ramiro screw fixation beginning at T10 and extending to S1. There are pedicle screws bilaterally at T10- T12, on the right at L1, on the left at L4 and bilaterally at L5 and S1. There is a chronic fracture of the right-sided ye immediately caudal to the L1 pedicle screw. No interval change in approximatel y 7 mm displacement of the right at the caudal margin of the fracture. Thoracic vertebral body and di sc heights appear normal. There is approximately 30 degree dextroscoliosis and a focal kyphosis cente red at L2. The L2 vertebral body is both subluxed to the right as well as with suggestion of signific ant anterior and left-sided vertebral body height loss which could be either developmental or sequela of prior surgery or trauma. This is partially visualized and appears unchanged on the sagittal image of the prior chest radiograph. The lumbar scoliosis and kyphosis results in poor profiling of the ve rtebral body and disc heights in the lumbar spine. Bilateral sacroiliac joint spaces are relatively p reserved. T-shaped IUD projects over expected position in the central pelvis. IMPRESSION: 1. T10-S1 instrumented posterior spinal fusion with chronic fracture with mild displacement of the ri ght-sided vertical ye at the level of L2. The portion visualized on the prior chest radiograph appea rs unchanged. 2. Right lateral subluxation of the L2 vertebral body which appears deformed with anterior and left-s ided vertebral body height loss which could be developmental or more likely sequela of prior trauma. Correlate with clinical/surgical history. 3. Mild mid thoracic dextroscoliosis. Reviewed, dictated and finalized at location A. IMPRESSION: 1. T10-S1 instrumented posterior spinal fusion with chronic fracture with mild displacement of the right-sided vertical ye at the level of L2. The portion vi sualized on the prior chest radiograph appears unchanged. 2. Right lateral subluxation of the L2 vertebral body which appears deformed wi th anterior and left-sided vertebral body height loss which could be developmen cierra or more likely sequela of prior trauma. Correlate with clinical/surgical hi story. 3. Mild mid thoracic dextroscoliosis.
[2022-11-11 19:11] VITALS: BP 128/109; PULSE 110; RESP 20; TEMP 37.3; O2SAT 100
[2022-11-11] MEDS: ORPHENADRINE CITRATE 100 MG TABLET.ER PO (20:31)
[2022-11-11] MEDS: KETOROLAC 30 MG/ML VIAL (*BKC) IM (20:32)
[2022-11-11] MEDS: MORPHINE SULFATE (*CRX) 4 MG/ML INJ IM (20:32)
--- NOTE | 2022-11-11 21:36 | ED.GENADULT ---
HPI - General Adult General Chief complaint: Back Pain/Injury Stated complaint: back pain Time Seen by Provider: 11/11/22 19:42 History of Present Illness HPI narrative: Patient 22-year-old female who presents emergency department with chief complaint of back pain. Patient reports that she has prior history of scoliosis and had surgery with fusion and rods placed. The patient states about 6 months ago she had x-rays that showed that she had a fracture of one of the rods and reports that over the last couple days she has been doing a lot of lifting at work and started having severe back pain. The patient denies loss of bowel or bladder control patient denies saddle anesthesia denies foot drop. Related Data Home Medications Medication Instructions Recorded Confirmed sertraline 50 mg tablet (Zoloft) 50 mg PO DAILY 02/28/22 02/28/22 Allergies Allergy/AdvReac Type Severity Reaction Status Date / Time Penicillins Allergy Anaphylaxis Verified 03/02/22 23:46 Review of Systems Review of Systems: A 10 system review of systems was completed on the patient and is negative except for what is stated in the HPI. Nursing and ancillary documentation was reviewed. [facility] Past Medical History Medical History Depression Obesity Scoliosis Spina bifida occulta Surgical History Surgical History History of spinal fusion for scoliosis Family History Family History Mother Hypertension Social History Social History Social History: She lives at home with her mother, grandmother and best friend. 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 She has smoked a half a pack per day since she was 16 years old. She drinks 2-3 shots of alcohol every other day. She uses marijuana every other day to assist With her chronic back pain. Primary care physician: None surrogate decision maker: Mother Smoking packs per day: 0.25 Smoking cigarettes per day: 5.0 Years smoked: 4 Smoking pack-years: 1.00 Smoking status: Current every day smoker Tobacco type: cigarettes Alcohol intake: current Drinks per week: 7 Substance use: current Substance use type: marijuana Gender identity (if verbalized by the patient): Female Spiritual care concerns: Yes Exam Narrative: GENERAL: Well-appearing, well-nourished, and in no acute distress. HEAD: Normocephalic, atraumatic. EYES: PERRLA and EOMI. ENT: Nares clear, no rhinorrhea or epistaxis. Mucous membranes moist. NECK: Supple. CHEST: Clear to auscultation. No respiratory distress. HEART: Regular rate and rhythm. No murmur heard. Normal peripheral pulses. ABDOMEN: Soft, nontender, nondistended, normal active bowel sounds. Back: There is tenderness to palpation along the lumbar spine EXTREMITIES: Normal range of motion. No edema. SKIN: Warm, dry, no rash. NEURO: No focal deficits. Alert and oriented x3. PSYCH: Normal mood and affect. Course Vital Signs Vital signs: Vital Signs Temperature 37.3 C 11/11/22 19:11 Pulse Rate 110 H 11/11/22 19:11 Respiratory Rate 20 11/11/22 19:11 Blood Pressure 128/109 H 11/11/22 19:11 Pulse Oximetry 100 11/11/22 19:11 Oxygen Delivery Room Air 11/11/22 19:11 Temperature 37.3 C 11/11/22 19:11 Pulse Rate 110 H 11/11/22 19:11 Respiratory Rate 20 11/11/22 19:11 Blood Pressure 128/109 H 11/11/22 19:11 Pulse Oximetry 100 11/11/22 19:11 Oxygen Delivery Room Air 11/11/22 19:11 Medical Decision Making [facility] Narrative Medical decision making narrative: Differential diagnosis includes new fracture, cauda equina, sciatica, lumbar strain Plan: X-rays were obtained which showed: 1. T10-S1 instrumented posterior spinal fusion with chronic fracture wit
== END 2022-11-11 21:57 | disposition home or self-care (01) ==
PROVIDERS: Emergency Provider Emergency Medicine; PCP Emergency Medicine
DX: M54.50 Low back pain, unspecified (principal); F32.A Depression, unspecified; E66.9 Obesity, unspecified; Z68.43 Body mass index [BMI] 50.0-59.9, adult; F17.210 Nicotine dependence, cigarettes, uncomplicated; Z98.1 Arthrodesis status
CPT/HCPCS: 72070; 72100; 96372; 99284; A9270; J1100; J1885; J2270

== ENCOUNTER 2023-04-15 10:29 | Emergency (ER) | payer SELFPAY ==
[2023-04-15 10:38] VITALS: BP 131/70; PULSE 103; RESP 16; TEMP 37.9; O2SAT 99
--- NOTE | 2023-04-15 10:41 | ED.URI ---
HPI - URI/Sore Throat General Chief Complaint: Upper Respiratory Infection Stated Complaint: Sinus Time Seen by Provider: 04/15/23 10:53 Source: patient and RN notes reviewed Mode of arrival: ambulatory Limitations: no limitations History of Present Illness HPI Narrative: 22-year-old female presents with concern for sore throat, body aches, chills, cough, chest congestion for 2 days. Reports she is taking [id number] medications without relief. Reports exposure to strep throat MD elicited complaint: cough and sore throat Related Data Home Medications Medication Instructions Recorded Confirmed sertraline 50 mg tablet (Zoloft) 50 mg PO DAILY 02/28/22 02/28/22 Allergies Allergy/AdvReac Type Severity Reaction Status Date / Time Penicillins Allergy Anaphylaxis Verified 03/02/22 23:46 Review of Systems Review of Systems: CONSTITUTIONAL: Reports malaise, chills, or fever. EYES: Denies visual changes, redness, or discharge. ENT: Reports rhinorrhea, congestion, otalgia and sore throat. CARDIOVASCULAR: Denies chest pain, palpitations, or edema. RESPIRATORY: Reports cough, chest congestion. Denies dyspnea. GASTROINTESTINAL: Denies abdominal pain, nausea, vomiting, diarrhea SKIN: Denies rash or itching. MUSCULOSKELETAL: Reports myalgia. All systems reviewed & are unremarkable except as noted in HPI and below PMFSH Past Medical History Medical History Depression Obesity Scoliosis Spina bifida occulta Surgical History Surgical History History of spinal fusion for scoliosis Family History Family History Mother Hypertension Social History Social History Social History: She lives at home with her mother, grandmother and best friend. 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 She has smoked a half a pack per day since she was 16 years old. She drinks 2-3 shots of alcohol every other day. She uses marijuana every other day to assist With her chronic back pain. Primary care physician: None surrogate decision maker: Mother Smoking packs per day: 0.25 Smoking cigarettes per day: 5.0 Years smoked: 4 Smoking pack-years: 1.00 Smoking status: Current every day smoker Tobacco type: cigarettes Alcohol intake: current Drinks per week: 7 Substance use: current Substance use type: marijuana Gender identity (if verbalized by the patient): Female Spiritual care concerns: Yes Comments At time of signature, agree with nursing past medical, surgical, social and family history. There is no relevant family history pertinent to the presenting complaint Exam Narrative: GENERAL: Nontoxic-appearing and in no acute distress. HEAD: Normocephalic EYES: PERRLA, conjunctivae clear ENT: Nares clear, turbinates edematous and erythematous. Mucous membranes moist. Left TM pearly prince with dull light reflex, right TM erythematous and bulging; no tragal tenderness. Oropharynx erythematous without lesions. Tonsils not enlarged and without exudate, no drooling, no hoarseness, no trismus, uvula midline. NECK: Supple. No lymphadenopathy CHEST: Scattered inspiratory wheeze, otherwise clear to auscultation, breath sounds equal. No rhonchi, rales, or stridor. No respiratory distress, speaks in full sentences. HEART: Regular rate and rhythm. No murmur heard. SKIN: Warm, dry, no rash. NEURO: Alert and oriented x3. PSYCH: Normal mood and affect Course Course Emergency Course: Patient is aware of diagnosis, understands and agrees to treatment plan. Anticipatory guidance given. Patient agrees to follow-up as directed and is aware of reasons to seek care at the emergency department. Portions of this record may have been created with voice recognition software Lev
== END 2023-04-15 11:07 | disposition home or self-care (01) ==
PROVIDERS: Emergency Provider Nurse Practitioner; PCP Emergency Medicine
DX: H66.91 Otitis media, unspecified, right ear (principal); J40 Bronchitis, not specified as acute or chronic; Z20.822 Contact with and (suspected) exposure to COVID-19; F17.210 Nicotine dependence, cigarettes, uncomplicated; E66.9 Obesity, unspecified; Z68.41 Body mass index [BMI] 40.0-44.9, adult; M41.9 Scoliosis, unspecified; Q76.0 Spina bifida occulta; F12.90 Cannabis use, unspecified, uncomplicated; F32.A Depression, unspecified
CPT/HCPCS: 87081; 87426; 87804; 87880; 99213; C9803; G0463

== ENCOUNTER 2023-04-17 21:16 | Emergency (ER) | payer SELFPAY ==
[2023-04-17 21:38] VITALS: BP 164/83; PULSE 134; RESP 26; TEMP 39.2; O2SAT 95
[2023-04-17] MEDS: ACETAMINOPHEN 500 MG TABLET 1000 MG PO (22:31)
[2023-04-17 23:13] LABS: Influenza A QL RT-PCR Negative (Negative); Influenza B QL RT-PCR Negative (Negative); RSV RNA, RT-PCR Negative (Negative); SARS-CoV-2 RNA PCR Negative (Negative)
[2023-04-17 23:15] VITALS: TEMP 37.7
[2023-04-17 23:39] VITALS: BP 148/94; PULSE 121; RESP 16; O2SAT 96
--- NOTE | 2023-04-18 00:18 | PC.NURSE ---
Pt reports she is feeling better and wanting to leave. Pt has not been seen by provider at this time. Risks and benefits explained to pt.
== END 2023-04-17 23:53 | disposition left against medical advice (07) ==
PROVIDERS: Emergency Provider Emergency Medicine; PCP Emergency Medicine
DX: R05.9 Cough, unspecified (principal); Z20.822 Contact with and (suspected) exposure to COVID-19
CPT/HCPCS: 87637; 99199; A9270

== ENCOUNTER 2023-05-29 18:30 | Emergency (ER) | payer SELFPAY ==
--- NOTE | ~2023-05-29 | XR_ITS ---
EXAMINATION: XR abdomen obstructive series DATE: 05/29/2023 19:08 INDICATION: Nausea and vomiting. TECHNIQUE: Upright and supine views of the abdomen on 3 radiographs were obtained. COMPARISON: Lumbar spine radiographs 11/11/2022 FINDINGS: There are no dilated loops of bowel. There is a small volume of stool in the colon. No free intraperitoneal gas. There are changes of posterior fusion procedure involving thoracolumbar spine a nd the sacrum. Again seen is fracture of the right-sided spinal ye. IMPRESSION: 1. Nonobstructive bowel gas pattern. Reviewed, dictated and finalized at location E. RESS OPERATOR
[2023-05-29 18:51] VITALS: BP 151/96; PULSE 109; RESP 20; TEMP 37.2; O2SAT 100
--- NOTE | 2023-05-29 18:58 | ED.NAVMDI ---
HPI - Nausea/Vomiting/Diarrhea General Chief complaint: Nausea/Vomiting/Diarrhea Stated complaint: Vomiting Time Seen by Provider: 05/29/23 18:55 Source: patient Mode of arrival: ambulatory Limitations: no limitations History of Present Illness HPI Narrative: Linh is a 22-year-old female patient presenting to the clinic today with complaints of nausea, vomiting, diarrhea. She reports symptoms started 4 days ago. She is having some mid epigastric abdominal discomfort. Reports her last bowel movement was 3 hours ago and was loose but not diarrhea. She denies any known fever or chills. States she is having a pressure sensation in her mid epigastric area. Reports when the pressure gets up in her throat she feels as though she needs to vomit. Denies any urinary symptoms. Chance of possible . Related Data Allergies Allergy/AdvReac Type Severity Reaction Status Date / Time Penicillins Allergy Anaphylaxis Verified 04/17/23 21:16 Review of Systems Review of Systems: Pertinent positives per HPI. Patient denies any fever, chills, rash, headache, visual changes, dizziness, cough, runny nose, sore throat, shortness of breath, chest pain, palpitations, nausea, vomiting, diarrhea, constipation, abdominal pain, or any urinary issues. [facility] Past Medical History Medical History Depression Obesity Scoliosis Spina bifida occulta Surgical History Surgical History History of spinal fusion for scoliosis Family History Family History Mother Hypertension Social History Social History Social History: She lives at home with her mother, grandmother and best friend. 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 She has smoked a half a pack per day since she was 16 years old. She drinks 2-3 shots of alcohol every other day. She uses marijuana every other day to assist With her chronic back pain. Primary care physician: None surrogate decision maker: Mother Smoking packs per day: 0.25 Smoking cigarettes per day: 5.0 Years smoked: 4 Smoking pack-years: 1.00 Smoking status: Current every day smoker Tobacco type: cigarettes Alcohol intake: current Drinks per week: 7 Substance use: current Substance use type: marijuana Gender identity (if verbalized by the patient): Female Spiritual care concerns: Yes Comments At the time of my signature, I reviewed and agree with the nursing past medical, surgical, social, and family history. There is no relevant family history pertinent to the patient complaint. Exam Narrative: General: Well-developed, well nourished, in no apparent distress. Head: Normocephalic, atraumatic. Cardio: Regular rate and rhythm, s1 and s2 normal, no murmur appreciated. Resp: Clear to auscultation bilaterally, no rhonchi, rales, wheezing or rubs. Abdomen: Soft, pliable, nondistended bowel sounds present in all quadrants, tender to palpation over the mid epigastrium, no organomegly, no CVAT tenderness. Course Course Emergency Course: Portions of this record may have been created with voice recognition software. Level of Care: Express Care Visit Vital Signs Vital signs: Vital Signs Temperature 37.2 C 05/29/23 18:51 Pulse Rate 109 H 05/29/23 18:51 Respiratory Rate 20 05/29/23 18:51 Blood Pressure 151/96 H 05/29/23 18:51 Pulse Oximetry 100 05/29/23 18:51 Oxygen Delivery Room Air 05/29/23 18:51 Temperature 37.2 C 05/29/23 18:51 Pulse Rate 109 H 05/29/23 18:51 Respiratory Rate 20 05/29/23 18:51 Blood Pressure 151/96 H 05/29/23 18:51 Pulse Oximetry 100 05/29/23 18:51 Oxygen Delivery Room Air 05/29/23 18:51 Vital signs reviewed MDM - Nausea/Vomiting/Diarrhea MDM Narrative Medical decision danna
== END 2023-05-29 19:32 | disposition home or self-care (01) ==
PROVIDERS: Emergency Provider Nurse Practitioner Family; PCP Emergency Medicine
DX: K52.9 Noninfective gastroenteritis and colitis, unspecified (principal); F17.210 Nicotine dependence, cigarettes, uncomplicated; F12.90 Cannabis use, unspecified, uncomplicated; E66.9 Obesity, unspecified; Z68.41 Body mass index [BMI] 40.0-44.9, adult; M41.9 Scoliosis, unspecified; Q76.0 Spina bifida occulta
CPT/HCPCS: 74019; 81003; 81025; 87804; 99213; G0463

== ENCOUNTER 2023-09-23 12:28 | Emergency (ER) | payer MEDICAID, SELFPAY ==
[2023-09-23 12:38] VITALS: BP 124/95; PULSE 114; RESP 20; TEMP 37.2; O2SAT 98
--- NOTE | 2023-09-23 12:47 | ED.URI ---
HPI - URI/Sore Throat General Chief Complaint: Upper Respiratory Infection Stated Complaint: Sinus/Ears Irritation Source: patient and RN notes reviewed Mode of arrival: ambulatory Limitations: no limitations History of Present Illness HPI Narrative: 23-year-old female presented for complaint of sinus congestion and pressure, bilateral ear pain, and cough worsening for about 2 weeks. Endorses hearing is muffled with occasional ringing. She has taken Tylenol and saline nasal spray for symptoms. She denies shortness of breath, wheezing nausea, vomiting, diarrhea, fevers or chills. MD elicited complaint: cough Related Data Allergies Allergy/AdvReac Type Severity Reaction Status Date / Time Penicillins Allergy Anaphylaxis Verified 09/23/23 12:32 Review of Systems Review of Systems: CONSTITUTIONAL: Denies malaise, chills, sweats, fever EYES: Denies visual changes, redness, or discharge ENT: Reports rhinorrhea, congestion, sinus pain, otalgia, sore throat CARDIOVASCULAR: Denies chest pain, palpitations, edema RESPIRATORY: Reports cough, post nasal drainage. Denies dyspnea GASTROINTESTINAL: Denies abdominal pain, nausea, vomiting, diarrhea SKIN: Denies rash or itching MUSCULOSKELETAL: Denies myalgia NEUROLOGIC: Reports headache PMFSH Past Medical History Medical History Depression Obesity Scoliosis Spina bifida occulta Surgical History Surgical History History of spinal fusion for scoliosis Family History Family History Mother Hypertension Social History Social History Social History: She lives at home with her mother, grandmother and best friend. 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 She has smoked a half a pack per day since she was 16 years old. She drinks 2-3 shots of alcohol every other day. She uses marijuana every other day to assist With her chronic back pain. Primary care physician: None surrogate decision maker: Mother Smoking packs per day: 0.25 Smoking cigarettes per day: 5.0 Years smoked: 4 Smoking pack-years: 1.00 Smoking status: Current every day smoker Tobacco type: cigarettes Alcohol intake: current Drinks per week: 7 Substance use: current Substance use type: marijuana Gender identity (if verbalized by the patient): Female Spiritual care concerns: Yes Exam Narrative: GENERAL: mildly Ill-appearing, nontoxic no acute distress. EYES: PERRLA, conjunctivae clear ENT: Mucous membranes moist. Nasal congestion. Bilateral TMs erythematous, bulging and intact with purulent effusion; canals not erythematous, no drainage, no tragal tenderness. Oropharynx erythematous without lesions or exudate, no drooling, no hoarseness, no trismus, uvula midline. No tripod positioning, muffled voice, soft palate or pharyngeal wall bulging NECK: Supple. No lymphadenopathy CHEST: Clear to auscultation, breath sounds equal. No wheezing, rhonchi, rales, or stridor. No respiratory distress, speaks in full sentences. HEART: Regular rate and rhythm. No murmur heard. SKIN: Warm, dry, no rash. NEURO: Alert and oriented x3. PSYCH: Normal mood and affect Course Course Emergency Course: Patient is aware of diagnosis, understands and agrees to treatment plan. Anticipatory guidance given. Patient agrees to follow-up as directed and is aware of reasons to seek care at the emergency department. Portions of this record may have been created with voice recognition software Level of Care: Express Care Visit Vital Signs Vital signs: Vital Signs Temperature 98.9 F 09/23/23 12:38 Pulse Rate 114 H 09/23/23 12:38 Respiratory Rate 20 09/23/23 12:38 Blood Pressure 124/95 H 09/23/23 12:38 Pulse Oximetry 98 09/23/23 12:38 Oxygen Delivery Room Air
== END 2023-09-23 13:00 | disposition home or self-care (01) ==
PROVIDERS: Emergency Provider Nurse Practitioner Family; PCP Emergency Medicine
DX: H66.93 Otitis media, unspecified, bilateral (principal); J40 Bronchitis, not specified as acute or chronic; F17.210 Nicotine dependence, cigarettes, uncomplicated; F12.90 Cannabis use, unspecified, uncomplicated; E66.9 Obesity, unspecified; Z68.42 Body mass index [BMI] 45.0-49.9, adult; Q76.0 Spina bifida occulta; M41.9 Scoliosis, unspecified
CPT/HCPCS: 99213; G0463

== ENCOUNTER 2023-11-30 14:45 | Emergency (ER) | payer OTHER, SELFPAY ==
--- NOTE | 2023-11-30 14:48 | ED.URI ---
HPI - URI/Sore Throat General Chief Complaint: Shortness of Breath/Dyspnea Stated Complaint: SOB Time Seen by Provider: 11/30/23 14:48 Source: patient Mode of arrival: ambulatory Limitations: no limitations History of Present Illness HPI Narrative: Patient is a 23-year-old female who presents with 3 days cough, congestion, sore throat and fever. Patient has a history of bronchitis. Denies any history of asthma. Did get the flu shot but has not been COVID vaccine. Patient was on cefdinir 10/24. Patient has taken NyQuil. Related Data Home Medications Medication Instructions Recorded Confirmed Elizabeth-D 24 Hour 1 tablet PO DAILY 11/30/23 11/30/23 Allergies Allergy/AdvReac Type Severity Reaction Status Date / Time Penicillins Allergy Anaphylaxis Verified 09/23/23 12:32 Review of Systems Review of Systems: All systems reviewed & are unremarkable except as noted in HPI and below Constitutional: Constitutional: Denies body ache(s), Denies chills, Denies fatigue, Denies fever(s), Denies headache(s), Denies malaise and Denies weakness Eyes: Eyes: Denies blurry vision, Denies itchy eyes and Denies loss of vision ENT: Reports otalgia, Denies headache(s), Reports nasal congestion, Denies sinus pain and Reports sore throat Cardiovascular: Cardiovascular: Denies chest pain, Denies irregular heart rhythm and Denies dyspnea Respiratory: Respiratory: Reports cough and Denies dyspnea Gastrointestinal: Gastrointestinal: Denies abdominal pain, Denies diarrhea, Denies nausea and Denies vomiting Musculoskeletal: Musculoskeletal: Denies back pain, Denies myalgias and Denies arthralgias Integumentary/Breasts: Skin/Breast: Denies pruritus and Denies rash Neurologic: Denies headache(s), Denies loss of vision and Denies weakness Psychiatric: Psychiatric: Reports no additional psychiatric complaints Endocrine: Endocrine: Denies fatigue Allergic/Immunologic: Allergic/Immunologic: Denies itchy eyes PMFSH Past Medical History Medical History Depression Obesity Scoliosis Spina bifida occulta Surgical History Surgical History History of spinal fusion for scoliosis Family History Family History Mother Hypertension Social History Social History Social History: She lives at home with her mother, grandmother and best friend. 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 She has smoked a half a pack per day since she was 16 years old. She drinks 2-3 shots of alcohol every other day. She uses marijuana every other day to assist With her chronic back pain. Primary care physician: None surrogate decision maker: Mother Smoking packs per day: 0.25 Smoking cigarettes per day: 5.0 Years smoked: 4 Smoking pack-years: 1.00 Smoking status: Current every day smoker Tobacco type: cigarettes Alcohol intake: current Drinks per week: 7 Substance use: current Substance use type: marijuana Gender identity (if verbalized by the patient): Female Spiritual care concerns: Yes Comments At time of signature, agree with nursing past medical, surgical, social and family history. There is no relevant family history pertinent to the presenting complaint. Exam Const: General: cooperative, healthy appearing, comfortable, no acute distress and well nourished Nutritional Appearance: well nourished Orientation/consciousness: patient oriented x3 Limitations: no limitations HENMT: Head: normal to inspection, normocephalic and atraumatic Ears: hearing grossly normal bilaterally, external ears normal, EAC's normal, no periauricular adenopathy and TM abnormal bulging bilateral and erythematous bilateral Face/Nose/Sinus: Normal external nose present, Abnormal mucous membranes and turbinates present erythematou
[2023-11-30 15:02] VITALS: BP 125/94; PULSE 122; RESP 22; TEMP 37.6; O2SAT 97
== END 2023-11-30 15:55 | disposition home or self-care (01) ==
PROVIDERS: Emergency Provider Nurse Practitioner Family
DX: H66.006 Acute suppurative otitis media without spontaneous rupture of ear drum, recurrent, bilateral (principal); Z20.822 Contact with and (suspected) exposure to COVID-19; F17.210 Nicotine dependence, cigarettes, uncomplicated; E66.9 Obesity, unspecified; Z68.42 Body mass index [BMI] 45.0-49.9, adult; M41.9 Scoliosis, unspecified; Q76.0 Spina bifida occulta
CPT/HCPCS: 87081; 87426; 87804; 87880; 99213; G0463

== ENCOUNTER 2024-01-29 18:54 | Emergency (ER) | payer OTHER, SELFPAY ==
[2024-01-29 19:05] VITALS: BP 135/92; PULSE 103; RESP 16; TEMP 37.2; O2SAT 98
--- NOTE | 2024-01-29 19:31 | ED.URI ---
HPI - URI/Sore Throat General Chief Complaint: Upper Respiratory Infection Stated Complaint: clogged ears, chest cough, fever,bodyaches Time Seen by Provider: 01/29/24 19:22 Source: patient and RN notes reviewed Mode of arrival: ambulatory Limitations: no limitations History of Present Illness HPI Narrative: Patient presents today complaining of a 5 day history of cough, nasal congestion, body aches, chills, occasional shortness of breath. Denies fever or sore throat. She has tried NyQuil, Mucinex, and ibuprofen with mild relief. No history of asthma. 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 Negative home COVID test today. Patient does vape. Related Data Allergies Allergy/AdvReac Type Severity Reaction Status Date / Time Penicillins Allergy Anaphylaxis Verified 09/23/23 12:32 Review of Systems Review of Systems: CONSTITUTIONAL: Denies fever, or sweats.+ body aches, chills EYES: Denies visual changes, redness, or discharge. ENT: Denies rhinorrhea, sore throat, or otalgia.+ congestion CARDIOVASCULAR: Denies chest pain, palpitations, or edema. RESPIRATORY: + cough, shortness of breath GASTROINTESTINAL: Denies abdominal pain, nausea, vomiting, or diarrhea. GENITOURINARY: Denies dysuria or hematuria. SKIN: Denies rash, itching, or wounds. MUSCULOSKELETAL: Denies back pain, joint pain, or myalgia. NEUROLOGIC: Denies headache, numbness, tingling, or weakness. PSYCH: Denies depression or anxiety. [facility] Past Medical History Medical History Depression Obesity Scoliosis Spina bifida occulta Surgical History Surgical History History of spinal fusion for scoliosis Family History Family History Mother Hypertension Social History Social History Social History: She lives at home with her mother, grandmother and best friend. 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 She has smoked a half a pack per day since she was 16 years old. She drinks 2-3 shots of alcohol every other day. She uses marijuana every other day to assist With her chronic back pain. Primary care physician: None surrogate decision maker: Mother Smoking packs per day: 0.25 Smoking cigarettes per day: 5.0 Years smoked: 4 Smoking pack-years: 1.00 Smoking status: Current every day smoker Tobacco type: cigarettes Alcohol intake: current Drinks per week: 7 Substance use: current Substance use type: marijuana Gender identity (if verbalized by the patient): Female Spiritual care concerns: Yes Comments At time of signature, I have reviewed and agree with nursing past medical, surgical, social and family history unless otherwise noted. Please see nursing chart for further information. There is no relevant family history pertinent to the presenting complaint Exam Narrative: GENERAL: Mildly ill-appearing, well-nourished, and in no acute distress. HEAD: Normocephalic, atraumatic. EYES: EOMI. No redness or drainage. Conjunctivae normal. ENT: Mucous membranes pink and moist. Nares congested. No rhinorrhea. Right TM normal. Left TM erythematous and bulging. Throat normal. Uvula midline. NECK: Normal AROM. Supple. No lymphadenopathy. CHEST: No respiratory distress. Expiratory wheezes throughout. Harsh cough noted HEART: Regular rate and rhythm. No murmur appreciated. EXTREMITIES: Normal range of motion. No edema. SKIN: Warm, dry, no rash. Capillary refill normal. Normal skin turgor. NEURO: No focal deficits. Alert and oriented x3. Gait steady. PSYCH: Normal affect. No signs of depression or anxiety. Course Course Emergency Course: Patient feeling better after Duoneb. Aeration has increased. Wheezing improved. Level of Care: Express Care Visit Vital Signs Vital signs: Vital Signs
[2024-01-29] MEDS: ALBUTEROL SULFATE NEB 2.5 MG/3 ML INH INHALATION (19:34)
[2024-01-29] MEDS: IPRATROPIUM BR 0.02% INH SOLN 0.5 MG/2.5 ML VIAL INHALATION (19:34)
[2024-01-29 19:35] VITALS: PULSE 103; RESP 18; O2SAT 98
[2024-01-29 19:55] VITALS: PULSE 99; RESP 18; O2SAT 97
== END 2024-01-29 20:02 | disposition home or self-care (01) ==
PROVIDERS: Emergency Provider Nurse Practitioner
DX: H66.92 Otitis media, unspecified, left ear (principal); J06.9 Acute upper respiratory infection, unspecified; F17.210 Nicotine dependence, cigarettes, uncomplicated; Q76.0 Spina bifida occulta; M41.9 Scoliosis, unspecified; E66.9 Obesity, unspecified; Z68.42 Body mass index [BMI] 45.0-49.9, adult
CPT/HCPCS: 94640; 99213; G0463

== ENCOUNTER 2024-04-01 11:47 | Emergency (ER) | payer OTHER, SELFPAY ==
--- NOTE | ~2024-04-01 | XR_ITS ---
EXAMINATION: XR chest 2V DATE: 04/01/2024 12:34 INDICATION: Cough. Shortness of breath. TECHNIQUE: Frontal and lateral views of the chest were obtained. COMPARISON: Chest single view 03/03/2022, thoracic spine radiographs 11/11/2022 FINDINGS: There is no pneumonia, pleural effusion, or pneumothorax. The heart size is normal. There a re changes of posterior fusion procedure in thoracolumbar spine. The right-sided ye is fractured, wh ich is chronic. IMPRESSION: 1. No acute cardiopulmonary disease. Reviewed, dictated and finalized at location A.
[2024-04-01 11:55] VITALS: BP 155/106; PULSE 116; RESP 20; TEMP 37.2; O2SAT 99
--- NOTE | 2024-04-01 12:18 | ED.URI ---
HPI - URI/Sore Throat General Chief Complaint: Upper Respiratory Infection Stated Complaint: Sinus Time Seen by Provider: 04/01/24 12:00 Source: patient Mode of arrival: ambulatory Limitations: no limitations History of Present Illness HPI Narrative: Linh is a 23-year-old female patient presenting to the clinic today with complaints of cough, ear pain, sinus congestion, sore throat, body aches, fevers, chills, and shortness of breath x4 days. 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 Did an at-home COVID test and it was negative. MD elicited complaint: fever, cough, sore throat, rhinorrhea, nasal congestion and other (Body aches, chills, shortness of breath) Related Data Allergies Allergy/AdvReac Type Severity Reaction Status Date / Time Penicillins Allergy Anaphylaxis Verified 04/01/24 11:49 Review of Systems Review of Systems: Pertinent positives per HPI. Patient denies any rash, headache, visual changes, dizziness, chest pain, palpitations, nausea, vomiting, diarrhea, constipation, abdominal pain, or any urinary issues. [facility] Past Medical History Medical History Depression Obesity Scoliosis Spina bifida occulta Surgical History Surgical History History of spinal fusion for scoliosis Family History Family History Mother Hypertension Social History Social History Social History: She lives at home with her mother, grandmother and best friend. 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 She has smoked a half a pack per day since she was 16 years old. She drinks 2-3 shots of alcohol every other day. She uses marijuana every other day to assist With her chronic back pain. Primary care physician: None surrogate decision maker: Mother Smoking packs per day: 0.25 Smoking cigarettes per day: 5.0 Years smoked: 4 Smoking pack-years: 1.00 Smoking status: Current every day smoker Tobacco type: cigarettes Alcohol intake: current Drinks per week: 7 Substance use: current Substance use type: marijuana Gender identity (if verbalized by the patient): Female Spiritual care concerns: Yes Comments At the time of my signature, I reviewed and agree with the nursing past medical, surgical, social, and family history. There is no relevant family history pertinent to the patient complaint. Exam Narrative: General: Well-developed, obese, in no apparent distress Head: Normocephalic, atraumatic Eyes: Pupils equally round and reactive to light bilaterally, EOM intact, sclera and conjunctive clear, no discharge, lids normal Ears: TMs intact, bulging, red, ear canals clear, no drainage, grossly hearing normal. Nose: Nares patent, clear nasal discharge, moderate inflammation, no sinus tenderness. Mouth: Oral pharynx without lesions or masses, good dentition, MMM. Neck: Supple, trachea midline, no enlargement of anterior or posterior cervical nodes, no thyroid masses or goiter palpable. Cardio: Regular rate and rhythm, s1 and s2 normal, no murmur appreciated. Resp: Tight lung sounds with expiratory wheezing throughout lung [place], no rhonchi, rales, or rubs Course Course Emergency Course: Portions of this record may have been created with voice recognition software. Level of Care: Express Care Visit Vital Signs Vital signs: Vital Signs Temperature 37.2 C 04/01/24 11:55 Pulse Rate 116 H 04/01/24 11:55 Respiratory Rate 20 04/01/24 11:55 Blood Pressure 155/106 H 04/01/24 11:55 Pulse Oximetry 99 04/01/24 11:55 Oxygen Delivery Room Air 04/01/24 11:55 Temperature 37.2 C 04/01/24 11:55 Pulse Rate 116 H 04/01/24 11:55 Respiratory Rate 20 04/01/24 11:55 Blood Pressure 155/106 H 04/01/24 11:55 Pulse Oximetry 99 04/01/24 11:55 Oxygen
[2024-04-01 12:31] LABS: EDCOVIDSCREEN Negative (Negative); EDINFLUASCREEN Negative (Negative); EDINFLUBSCREEN Negative (Negative); EDSTREPNEGPOS1 Negative (Negative)
[2024-04-01] MEDS: IPRATROPIUM 0.5 MG/ALBUTEROL SULFATE 2.5 MG AMPUL.NEB 3 ML INHALATION (13:07)
[2024-04-01 13:30] VITALS: BP 158/88; PULSE 102; RESP 20; O2SAT 99
== END 2024-04-01 13:30 | disposition home or self-care (01) ==
PROVIDERS: Emergency Provider Nurse Practitioner Family
DX: J40 Bronchitis, not specified as acute or chronic (principal); J06.9 Acute upper respiratory infection, unspecified; H66.003 Acute suppurative otitis media without spontaneous rupture of ear drum, bilateral; Z20.822 Contact with and (suspected) exposure to COVID-19; F17.210 Nicotine dependence, cigarettes, uncomplicated; E66.9 Obesity, unspecified; Z68.43 Body mass index [BMI] 50.0-59.9, adult; M41.9 Scoliosis, unspecified; Q76.0 Spina bifida occulta
CPT/HCPCS: 71046; 87081; 87426; 87804; 87880; 94640; 99213; G0463

== ENCOUNTER 2024-06-03 10:05 | Emergency (ER) | payer OTHER, SELFPAY ==
[2024-06-03 10:15] VITALS: BP 158/99; PULSE 115; RESP 16; TEMP 36.6; O2SAT 100
--- NOTE | 2024-06-03 11:49 | ED_ITS ---
HPI - General Adult General Chief complaint: Fall Stated complaint: Back Pain Time Seen by Provider: 06/03/24 11:49 Source: patient, RN notes reviewed and old records reviewed Mode of arrival: ambulatory Limitations: no limitations History of Present Illness HPI narrative: Patient presents with complaints of low back pain. Patient reports that she had surgery several years ago to correct scoliosis. She does know that she has a broken ye on the right side of her back. Last night she was caring a back down the steps, tripped fell down steps on her buttock. Now has right-sided low back pain with radiation down the right buttock and into the right leg and foot. She is observed ambulating with a steady gait. She has been taking [id number] medications with no relief. She denies any numbness or tingling. She denies any loss of bowel or bladder control. She voices no other concerns or complaints today. Related Data Allergies Allergy/AdvReac Type Severity Reaction Status Date / Time Penicillins Allergy Anaphylaxis Verified 06/03/24 10:40 Review of Systems Review of Systems: All systems reviewed & are unremarkable except as noted in HPI and below Constitutional: Constitutional: Reports no additional constitutional complaints ENT: Reports system reviewed and no additional complaints, except as documented Cardiovascular: Cardiovascular: Reports no additional cardiovascular complaints Respiratory: Respiratory: Reports no additional respiratory complaints Gastrointestinal: Gastrointestinal: Reports no additional gastrointestinal complaints Musculoskeletal: Musculoskeletal: Reports no additional musculoskeletal complaints, Reports as per HPI, Reports back pain and Reports radiating pain into limb Neurologic: Denies numbness, Reports radicular pain, Denies tingling and Denies paresthesias [facility] Past Medical History Medical History Depression Obesity Scoliosis Spina bifida occulta Surgical History Surgical History History of spinal fusion for scoliosis Family History Family History Mother Hypertension Social History Social History Social History: She lives at home with her mother, grandmother and best friend. 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 She has smoked a half a pack per day since she was 16 years old. She drinks 2-3 shots of alcohol every other day. She uses marijuana every other day to assist With her chronic back pain. Primary care physician: None surrogate decision maker: Mother Smoking packs per day: 0.25 Smoking cigarettes per day: 5.0 Years smoked: 4 Smoking pack-years: 1.00 Smoking status: Current every day smoker Tobacco type: cigarettes Alcohol intake: current Drinks per week: 7 Substance use: current Substance use type: marijuana Gender identity (if verbalized by the patient): Female Spiritual care concerns: Yes Comments At the time of my signature, I reviewed and agree with the nursing past medical, surgical, social, and family history. There is no relevant family history pertinent to the patient complaint. Exam Const: General: cooperative, no acute distress, alert and awake Orientation/consciousness: oriented to person, oriented to place and oriented to time HENMT: Head: normal to inspection Resp: Effort & Inspection: normal respiratory effort and able to speak in complete sentences Auscultation: clear to auscultation bilaterally, no crackles, no rales, no rhonchi and no wheezes Cardio: Palpation: normal PMI Rate: regular rate Rhythm: regular rhythm Heart sounds: S1 normal heart sound present and S2 normal heart sound present Back/Spine/Pelvis: Thoracic/Lumbar Spine: thoraco-lumbar spasm Neuro: General: oriented to person, oriented to place and oriented to time Cranial nerves: Yes CN's II-XII intact bilaterally Psych: Appearance: grossly normal Thought process: Normal thought process present Insight: Good insight present (Psych) Judgement: Good judgement present (Psych) Course Course Level of Care: Express Care Visit Vital Signs Vital signs: Vital Signs Temperature 97.9 F 06/03/24 10:15 Pulse Rate 115 H 06/03/24 10:15 Respiratory Rate 16 06/03/24 10:15 Blood Pressure 158/99 H 06/03/24 10:15 Pulse Oximetry 100 06/03/24 10:15 Oxygen Delivery Room Air 06/03/24 10:15 Temperature 97.9 F 06/03/24 10:15 Pulse Rate 115 H 06/03/24 10:15 Respiratory Rate 16 06/03/24 10:15 Blood Pressure 158/99 H 06/03/24 10:15 Pulse Oximetry 100 06/03/24 10:15 Oxygen Delivery Room Air 06/03/24 10:15 Reviewed Medical Decision Making MDM Narrative Medical decision making narrative: No pain on palpation of the spine itself, but very tender right of midline. She reports pain is radiating. Start prednisone and muscle relaxants. Patient advised to follow with primary care provider. Emergency department immediately for any new or worsening symptoms Discharge instructions reviewed with patient, as well as provided in writing per nursing staff. The instructions also include specific and strict return/GO TO THE ER as well as f/u information. All questions have been answered, and the patient deny any further questions with discharge and discharge plan. Some parts of this dictation were generated by voice recognition software and may contain typographical and/or grammatical inaccuracies. Differential Diagnosis Differential Diagnosis: Back pain, radiculopathy, sciatica Medical Records Medical records reviewed: Yes I reviewed the external patient's medical records. Vital Signs Vital Signs: Vital Signs Temperature 97.9 F 06/03/24 10:15 Pulse Rate 115 H 06/03/24 10:15 Respiratory Rate 16 06/03/24 10:15 Blood Pressure 158/99 H 06/03/24 10:15 Pulse Oximetry 100 06/03/24 10:15 Oxygen Delivery Room Air 06/03/24 10:15 Temperature 97.9 F 06/03/24 10:15 Pulse Rate 115 H 06/03/24 10:15 Respiratory Rate 16 06/03/24 10:15 Blood Pressure 158/99 H 06/03/24 10:15 Pulse Oximetry 100 06/03/24 10:15 Oxygen Delivery Room Air 06/03/24 10:15 reviewed Lab Data Lab results reviewed: Yes I reviewed the patient's lab results. Lab results narrative: reviewed Discharge Plan Discharge Clinical Impression: Back pain Qualifiers: Back pain location: low back pain Chronicity: acute Back pain laterality: right Sciatica presence: with sciatica Sciatica laterality: sciatica of right side Qualified Code(s): M54.41 - Lumbago with sciatica, right side Patient Disposition: Home, Self-Care Condition: Stable Instructions: Antibiotic Form, Sciatica (ED) Additional Instructions: Take medication as prescribed. Follow with primary care provider. Emergency department for new or worse symptoms Patient Language: Chinese Prescriptions: New prednisone 50 mg tablet 50 mg PO DAILY Qty: 5 0RF cyclobenzaprine 10 mg tablet 10 mg PO TID PRN (Reason: muscle spasm) Qty: 20 0RF Follow-up/Referrals: PHYSICIAN,[facility] [Primary Care Provider] - Stand Alone Forms: Work/School Release IP Time of Disposition: 11:56
== END 2024-06-03 12:19 | disposition home or self-care (01) ==
PROVIDERS: Emergency Provider Nurse Practitioner Family
DX: M54.41 Lumbago with sciatica, right side (principal); F17.210 Nicotine dependence, cigarettes, uncomplicated; F12.90 Cannabis use, unspecified, uncomplicated; Q76.0 Spina bifida occulta; E66.9 Obesity, unspecified; Z68.43 Body mass index [BMI] 50.0-59.9, adult
CPT/HCPCS: 99203; G0463

== ENCOUNTER 2024-08-31 10:56 | Emergency (ER) | payer OTHER, SELFPAY ==
--- NOTE | 2024-08-31 11:02 | ED_ITS ---
HPI - General Adult General Chief complaint: Nausea/Vomiting/Diarrhea Stated complaint: diarrhea,vomiting,fever,chills Time Seen by Provider: 08/31/24 11:20 Source: patient, RN notes reviewed and old records reviewed Mode of arrival: ambulatory Limitations: no limitations History of Present Illness HPI narrative: 24-year-old female presents to the [facility] with complaints of nausea,vomiting,diarrhea,fevers, chills, abdominal pain. Symptoms started night. States that when she take sips of water she vomits. Tenderness right upper quadrant, epigastric. Onset (ago): day(s) (2) Treatments prior to arrival: other (Pepto, Tylenol, Motrin) Related Data Allergies Allergy/AdvReac Type Severity Reaction Status Date / Time Penicillins Allergy Anaphylaxis Verified 08/31/24 12:35 Review of Systems Review of Systems: All systems reviewed & are unremarkable except as noted in HPI and below Constitutional: Constitutional: Reports as per HPI, Reports body ache(s), Reports chills, Reports fatigue and Reports fever(s) ENT: Reports system reviewed and no additional complaints, except as documented Cardiovascular: Cardiovascular: Reports no additional cardiovascular complaints, Denies chest pain and Denies dyspnea Respiratory: Respiratory: Reports no additional respiratory complaints, Denies chest congestion, Denies cough and Denies dyspnea Gastrointestinal: Gastrointestinal: Reports as per HPI, Reports abdominal pain, Reports diarrhea, Reports nausea and Reports vomiting Musculoskeletal: Musculoskeletal: Reports no additional musculoskeletal complaints Integumentary/Breasts: Skin/Breast: Reports system reviewed and no additional complaints, except as docu PMFSH Past Medical History Medical History Obesity Spina bifida occulta Scoliosis Depression Surgical History Surgical History History of spinal fusion for scoliosis Family History Family History Mother Hypertension Social History Social History Social History: She lives at home with her mother, grandmother and best friend. 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 She has smoked a half a pack per day since she was 16 years old. She drinks 2-3 shots of alcohol every other day. She uses marijuana every other day to assist With her chronic back pain. Primary care physician: None surrogate decision maker: Mother Smoking packs per day: 0.25 Smoking cigarettes per day: 5.0 Years smoked: 4 Smoking pack-years: 1.00 Smoking status: Current every day smoker Tobacco type: cigarettes Alcohol intake: current Drinks per week: 7 Substance use: current Substance use type: marijuana Gender identity (if verbalized by the patient): Female Spiritual care concerns: Yes Comments At the time of my signature, I reviewed and agree with the nursing past medical, surgical, social, and family history. There is no relevant family history pertinent to the patient complaint. Exam Const: General: cooperative, well developed, alert, ill appearing, tired appearing, uncomfortable and well nourished Nutritional Appearance: well nourished and obese Orientation/consciousness: patient oriented x3 Limitations: no limitations HENMT: Head: normal to inspection Mouth: Yes Normal oral and palatal mucosa present, Yes lip normal and Yes tongue normal Throat: uvula midline, posterior oropharynx abnormal erythema; no edema and no exudates and no uvular edema Eyes: General: appearance normal, both eyes and all related structures Alignment and Position: alignment normal Neck: Neck: normal visual inspection, full ROM, no lymphadenopathy and no meningeal signs Chest: Chest palpation & inspection: normal inspection of the chest Resp: Effort & Inspection: normal respiratory effort and able to speak in complete sentences Auscultation: clear to auscultation bilaterally, no crackles, no rales, no rhonchi and no wheezes Cardio: Rate: tachycardic GI: GI Palp: Yes abdominal tenderness, Yes Soft to palpation and Yes Guarding due to palpation present (GI) (Right upper quadrant, epigastric) : General: Yes no CVA tenderness Skin: General skin exam: normal color and no rashes or lesions noted Neuro: General: patient oriented x3, gait normal, moves all extremities and no meningeal signs Cognition (Neuro): normal cognition Speech: normal speech Gait exam (Neuro): Normal gait present Extrem: General: normal to inspection, full ROM, capillary refill normal and normal gait Psych: Appearance: grossly normal and well kempt Mental Status: mental status grossly normal Speech and movement: Normal speech and movement present and Clear speech present Affect: normal affect Attitude: cooperative Course Course Level of Care: Express Care Visit Vital Signs Vital signs: Vital Signs Temperature 99.3 F 08/31/24 11:12 Pulse Rate 110 H 08/31/24 11:12 Respiratory Rate 16 08/31/24 11:12 Blood Pressure 142/101 H 08/31/24 11:12 Pulse Oximetry 99 08/31/24 11:12 Oxygen Delivery Room Air 08/31/24 11:12 Temperature 99.3 F 08/31/24 11:12 Pulse Rate 110 H 08/31/24 11:12 Respiratory Rate 16 08/31/24 11:12 Blood Pressure 142/101 H 08/31/24 11:12 Pulse Oximetry 99 08/31/24 11:12 Oxygen Delivery Room Air 08/31/24 11:12 Reviewed Transfer Transfered to: [facility] (Per patient request) Transportation: BLS Transfer rationale: Patient requesting transfer to [facility] via EMS. Patient with right upper quadrant, epigastric pain, rule out cholecystitis Accepting physician: Spoke with Dr. Correa Medical Decision Making MDM Narrative Medical decision making narrative: Patient sitting on comfortably in exam room. Patient is nontoxic, pulse is elevated, blood pressure elevated. Presents with abdominal pain, nausea and vomiting. Sending to the emergency room to rule out cholecystitis Transfer instructions reviewed with patient to go directly to the ER. Patient requesting to be transferred by EMS All questions have been answered, and the patient deny any further questions. Some parts of this dictation were generated by voice recognition software and may contain typographical and/or grammatical inaccuracies. Differential Diagnosis Differential Diagnosis: Cholecystitis, acute abdomen, appendicitis, gastroenteritis Medical Records Medical records reviewed: Yes I reviewed the external patient's medical records. Vital Signs Vital Signs: Vital Signs Temperature 99.3 F 08/31/24 11:12 Pulse Rate 110 H 08/31/24 11:12 Respiratory Rate 16 08/31/24 11:12 Blood Pressure 142/101 H 08/31/24 11:12 Pulse Oximetry 99 08/31/24 11:12 Oxygen Delivery Room Air 08/31/24 11:12 Temperature 99.3 F 08/31/24 11:12 Pulse Rate 110 H 08/31/24 11:12 Respiratory Rate 16 08/31/24 11:12 Blood Pressure 142/101 H 08/31/24 11:12 Pulse Oximetry 99 08/31/24 11:12 Oxygen Delivery Room Air 08/31/24 11:12 Reviewed Lab Data Lab results reviewed: Yes I reviewed the patient's lab results. Labs: Lab Results 08/31/24 08/31/24 Range/Units 11:29 11:30 POC Influenza A Ag Negative (Negative) POC Influenza B Ag Negative (Negative) POC SARS CoV-2 Ag Negative (Negative) POC Grp A Strep Screen Negative (Negative) Reviewed Critical Care Time Critical Care Time Critical Care Time: No Discharge Plan Discharge Clinical Impression: Abdominal pain Qualifiers: Abdominal location: generalized Qualified Code(s): R10.84 - Generalized abdominal pain Patient Disposition: Acute Care Hospital Condition: Stable Patient Language: Telugu Prescriptions: No Action albuterol sulfate 90 mcg/actuation HFA aerosol inhaler 2 puff inhalation Q4-6H PRN (Reason: shortness of breath or wheezing) 30 Days Qty: 8.5 0RF albuterol sulfate 2.5 mg /3 mL (0.083 %) solution for nebulization 2.5 mg inhalation Q6H 30 Days Qty: 360 0RF Follow-up/Referrals: PHYSICIAN,ANALYTICAL CLERK [Primary Care Provider] -
[2024-08-31 11:12] VITALS: BP 142/101; PULSE 110; RESP 16; TEMP 37.4; O2SAT 99
[2024-08-31 11:31] LABS: EDCOVIDSCREEN Negative (Negative); EDINFLUASCREEN Negative (Negative); EDINFLUBSCREEN Negative (Negative)
[2024-08-31 11:41] LABS: EDSTREPNEGPOS1 Negative (Negative)
== END 2024-08-31 12:05 | disposition short-term general hospital (02) ==
PROVIDERS: Emergency Provider Nurse Practitioner
DX: R10.84 Generalized abdominal pain (principal); F17.210 Nicotine dependence, cigarettes, uncomplicated; Z20.822 Contact with and (suspected) exposure to COVID-19
CPT/HCPCS: 87081; 87426; 87804; 87880; 99215; G0463

== ENCOUNTER 2024-08-31 12:20 | Emergency (ER) | payer SELFPAY ==
--- NOTE | ~2024-08-31 | US_ITS ---
Limited ABDOMINAL ULTRASOUND (Doppler ultrasound interrogation techniques used as needed for this gloria m.) Ordering provider: Sd Correa MD History: . RUQ pain . Comparison: None. FINDINGS: PANCREAS: Not well visualized. PORTAL VEIN: Hepatopedal flow demonstrated. LIVER: Normal size and increased echotexture. Focal area of fat sparing is seen adjacent to the gallb ladder measuring 2.2 x 1.4 x 2.2 cm. Follow-up advised to exclude other differential. The wall thickn ess is 2.5 mm. No perihepatic fluid collections is identified. BILIARY DUCTS: No intra or extrahepatic biliary dilation. Common bile duct measures 4.8 mm in diamete r which is normal for patient's age. GALLBLADDER: Normal. No stones, sludge, gallbladder wall thickening or pericholecystic fluid. Negati ve sonographic Regalado's sign. FREE FLUID: None visualized within the upper abdomen. IMPRESSION: Fat infiltration of the liver. AREA OF FAT SPARING ADJACENT TO THE GALLBLADDER. FOLLOW-UP ADVISED. Ot herwise, normal limited abdominal ultrasound. Reviewed, dictated and finalized at location A. ITY ASSURANCE AUDITOR IMPRESSION: Fat infiltration of the liver. AREA OF FAT SPARING ADJACENT TO THE GALLBLADDER. FOLLOW-UP ADVISED. Otherwise, normal limited abdominal ultrasound.
--- NOTE | ~2024-08-31 | CT_ITS ---
CT abdomen pelvis w con Ordering provider: Sd Correa MD History: 24 years Female with . RUQ pain . Comparison: None. Technique: CT abdomen and pelvis with IV and without oral contrast. Automated exposure control and it erative reconstruction technique were employed. The dose-length product was 1418.70 mGy-cm. 100 mL Om nipaque 350 was given IV. Findings: VISUALIZED LOWER CHEST: Groundglass appearance is seen in the lung bases more on the right side which may indicate atelectasis versus pneumonia versus edema. Focal atelectatic area seen in the left lung base. UPPER ABDOMINAL ORGANS: Liver: Fat infiltration. Hepatomegaly. Gallbladder: Normal. 5 mm Focal thickening is seen in the wall. Spleen: Normal. Stomach/duodenum: Normal. Pancreas: Normal. Adrenals: Normal. Kidneys: Normal. PELVIC ORGANS: The bladder is normal. BOWEL AND MESENTERY: Colon: No evidence of diverticulitis. Fluid content seen in the right side of the colon which may ind icate diarrhea or enteritis. Normal appendix. Small Bowel: Normal. No obstruction. Peritoneum/mesentery: No free air or free fluid. No mesenteric lymphadenopathy. Small mesenteric lymp h nodes are noted. RETROPERITONEUM: Normal aorta. No retroperitoneal lymphadenopathy. MUSCULOSKELETAL: Superficial soft tissues: The superficial soft tissues are normal. Bones: Postoperative changes seen in the lower lumbar area and sacrum with old compression fracture i n L3. Dextroscoliosis. IMPRESSION: 1. Hepatomegaly with fat infiltration. 2. Fluid in the large bowel on the right side suggestive of diarrhea versus enteritis. Reviewed, dictated and finalized at location A. TYPE SETTER IMPRESSION: 1. Hepatomegaly with fat infiltration. 2. Fluid in the large bowel on the right side suggestive of diarrhea versus en teritis.
[2024-08-31 12:28] VITALS: BP 148/86; PULSE 111; RESP 18; TEMP 36.9; O2SAT 97
[2024-08-31 13:14] LABS: BEDSIDEPREGUCG Negative (Negative)
[2024-08-31 13:18] LABS: BEDSIDEPREGUCG Negative (Negative)
[2024-08-31 13:25] LABS: Basophils Absolute Auto 0.1 K/mm3 (0.0-0.1); Basophils Percent Auto 0.7 % (0.2-1.2); Eosinophils Absolute Auto 0.2 K/mm3 (0-0.3); Eosinophils Percent Auto 2.4 % (0-4.4); Hematocrit 46.3 % (37.0-47.0); Immature Granulocyte Absolute 0.03 K/mm3 (0.00-0.031); Immature Granulocyte Percent A 0.4 % (0-0.5); Lymphocytes Absolute Auto 1.11 K/mm3 (0.9-3.2); Lymphocytes Percent Auto 14.7 % (18.3-44.2); Mean Corpuscular HGB Conc 34.6 g/dl (32-36); Mean Corpuscular Hemoglobin 31.7 pg (26-34); Mean Corpuscular Volume 91.9 fl (80-100); Monocytes Absolute Auto 0.5 K/mm3 (0.1-0.6); Monocytes Percent Auto 6.5 % (2.6-8.5); Neutrophils Absolute Auto 5.7 K/mm3 (1.3-6.7); Neutrophils Percent Auto 75.3 % (45.5-73.1); Platelet Count Result 319 k/mm3 (150-375); Red Blood Count 5.04 M/mm3 (4.2-5.4); Red Cell Distribution Width 13.2 % (11.5-14.5); White Blood Count 7.5 K/mm3 (4.5-10.0)
--- OUTSIDE RECORDS SUMMARY | 2024-08-31 13:26 | XMS_ITS | Patient Health Summary ---
Author Organization [facility] [employer] Address [address] [place] [address] Care Team Providers Care Training And Development Director Name Role Phone Unknown, Provider Primary Care Provider Unavaila ble Note from [facility],non-owned Affiliates and Associated Physician Practices is amultiple site organization consisting of ambulatory clinics and hospital sitesin [place], [place], [place] and [place]. This disclosure is being madepursuant to the Care Everywhere program and may not contain all information available regarding this patient. Last updated 18.[facility] [employer] Allergies * Penicillins(Anaphylaxis) -High Criticality Social History Tobacco Use Types Packs/Day Years Used Date Smoking Tobacco: Every Day Cigarettes Smokeless Tobacco: Never Sex and Gender Information Value Date Recorded Sex Assigned at Not on file Gender Identity Not on file Sexual Orientation Not on file Procedures * XR LUMBAR SPINE 2 OR 3VW(Performed 01/17/2023) Performed for Back pain, unspecified back location, unspecified back pain laterality, unspecified chronicity Results * XR LUMBAR SPINE 2 OR 3VW (01/17/2023 1:56 PM CDT) Anatomical Region Laterality Modality Spine Radiographic Alexia ging 01/17/2023 2:16 PM CDT Impressions 01/17/2023 2:46 PM CDT Impression: Posterior spinal fusion from T10 to the sacrum with vertical rods and screws. The right ye is broken. Chronic appearing scoliotic deformity in the lower lumbar spine level of L3-4 and L4-5 with adjacent extensive ossification. IGuy MD have personally reviewed and interpreted this examination/study. > Interpreting Provider: Guy Cabrera MD on 01/17/2023 2:46 PM Narrative 01/17/2023 2:46 PM CDT PROCEDURE: XR LUMBAR SPINE 2 OR 3VW DATE/TIME OF EXAM: 01/17/2023 1:56 PM CLINICAL INFORMATION: None relevant/not provided if blank. Indication: M54.9: Back pain, unspecified back location, unspecified back pain laterality, unspecified chronicity Additional History: COMPARISON: None. Procedure Note Guy Cabrera MD - 01/17/2023 PROCEDURE: XR LUMBAR SPINE 2 OR 3VW DATE/TIME OF EXAM: 01/17/2023 1:56 PM CLINICAL INFORMATION: None relevant/not provided if blank. Indication: M54.9: Back pain, unspecified back location, unspecifiedback pain laterality, unspecified chronicity Additional History: COMPARISON: None. Impression: Posterior spinal fusion from T10 to the sacrum with vertical rods and screws. The right ye is broken. Chronic appearing scoliotic deformityin the lower lumbar spine level of L3-4 and L4-5 with adjacent extensive ossification. I, Guy Cabrera MD have personally reviewed and interpreted this examination/study. > Interpreting Provider: Guy Cabrera MD on 01/17/2023 2:46 PM Ariel Valdez MD [facility] Care Teams Training And Development Director Relationship Specialty Start Date End Date Unknown, Provider PCP - General 01/12/23
--- OUTSIDE RECORDS SUMMARY | 2024-08-31 13:26 | XMS_ITS | Continuity of Care Document ---
Author Organization [email or web address] Address [address] [place] [address] Phone Care Team Providers Care Aluminum Siding Mechanic Name Role Phone Talha Alcantar MD Unavailable Unavailabl e Advance Directives Directive Yes / No Effective Date File Name No Information Encounters Encounter Description Practice Location Reason(s) For Visit Diagnoses Date Provider Providers Copied on Encounter [facility], [address], [place], [place], [id number], tel:[phone] [facility] No Information [facility]. [address], [address], [place], [place], [address]. tel:[phone] Family History Family Member Type Diagnosis Age At Onset No Information Payers Payer name Insurance type Covered constitution party ID Authoriza tion(s) No Information Social [...]
--- OUTSIDE RECORDS SUMMARY | 2024-08-31 13:26 | XMS_ITS | Clinical Summary ---
Author Organization [facility] Care Team Providers Care Brilliandeer Lopper Name Role Phone Unavailable Primary Care Provider Unavailabl e Social History Tobacco Use Types Packs/Day Years Used Date Smoking Tobacco: Never Assessed Comments Unknown Sex and Gender Information Value Date Recorded Sex Assigned at Not on file Legal Sex Female 12:47 PM CDT Gender Identity Not on file Sexual Orientation Not on file Plan of Treatment Health Maintenance Due Date Last Done Comments Hepatitis C Virus (HCV) Screening 2000 TdaP Immunization 2000 Human Papillomavirus (HPV) Immunization (1 - 3-dose series) 2015 Meningococcal B Immunization (1 of 2 - Standard) 2016 Hepatitis B Immunization (1 of 3 - 19+ 3-dose series) 2019 Pap Smear 2021 Influenza Immunization (#1) 2024 SARS-COV-2 Immunization ( - season) 2024 Respiratory Syncytial Virus (RSV) Immunization (Adult) (1 - 1-dose 75+ series) 2075 Meningococcal Immunization (ACWY) Aged Out No longer eligible based on patient's age to complete this topic Pneumococcal Immunization Combined Aged Out No longer eligible based on patient's age to complete this topic Rotavirus Immunization Aged Out No lo nger eligible based on patient's age to complete this topic
--- OUTSIDE RECORDS SUMMARY | 2024-08-31 13:26 | XMS_ITS | Clinical Summary ---
Author Organization [facility] [employer] Address [address] [place] [address] Care Team Providers Care Sales Development Specialist Name Role Phone Unknown, Provider Primary Care Provider Unavaila ble Source Comments [facility],non-owned Affiliates and Associated Physician Practices is amultiple site organization consisting of ambulatory clinics and hospital sitesin [place], [place], [place] and [place]. This disclosure is being madepursuant to the Care Everywhere program and may not contain all information available regarding this patient. Last updated 18.[facility] [employer] Allergies Active Allergy Reactions Criticality Noted Date Comments Penicillins Anaphylaxis High 01/17/2023 Social History Tobacco Use Types Packs/Day Years Used Date Smoking Tobacco: Every Day Cigarettes Smokeless Tobacco: Never Sex and Gender Information Value Date Recorded Sex Assigned at Not on file Gender Identity Not on file Sexual Orientation Not on file Plan of Treatment Health Maintenance Due Date Last Done Comments HIV SCREENING 2015 HPV VACCINE (1 - 3-dose series) 2015 CHLAMYDIA/GONORRHEA SCREENING 2016 HEPATITIS C SCREENING 08/17/2018 DTAP/TDAP/TD VACCINES (1 - Tdap) 2019 HEPATITIS B VACCINE (1 of 3 - 19+ 3-dose series) 2019 PNEUMOCOCCAL VACCINE (1 of 2 - PCV) 2019 COVID-19 VACCINE ( - 2023-2 5 season) 2024 INFLUENZA VACCINE (#1) 2024 DEPRESSION SCREENING 06/26/2024 PAP SMEAR 11/28/2025 11/28/2022, 11/28/2022 ZOSTER VACCINE (1 of 2) 2050 HIB VACCINE Aged Out No longer eligi ble based on patient's age to complete this topic MENINGOCOCCAL (Group B) VACCINE Aged Out No longer eligible b ased on patient's age to complete this topic MENINGOCOCCAL VACCINE Aged Out No demetrius glenda eligible based on patient's age to complete this topic Care Teams Sales Development Specialist Relationship Specialty Start Date End Date Unknown, Provider PCP - General 01/12/23
--- OUTSIDE RECORDS SUMMARY | 2024-08-31 13:26 | XMS_ITS | Referral Summary ---
Author Organization [facility] Address [address] [place] [address] Care Team Providers Care Cornice Upholsterer Name Role Phone Unknown, Provider Primary Care Provider Unavaila ble Source Comments [facility],non-owned Affiliates and Associated Physician Practices is amultiple site organization consisting of ambulatory clinics and hospital sitesin [place], [place], [place] and [place]. This disclosure is being madepursuant to the Care Everywhere program and may not contain all information available regarding this patient. Last updated 18.[facility] [employer] Allergies Active Allergy Reactions Criticality Noted Date Comments Penicillins Anaphylaxis High 01/17/2023 Social History Tobacco Use Types Packs/Day Years Used Date Smoking Tobacco: Every Day Cigarettes Smokeless Tobacco: Never Sex and Gender Information Value Date Recorded Sex Assigned at Not on file Gender Identity Not on file Sexual Orientation Not on file Plan of Treatment Not on file Care Teams Cornice Upholsterer Relationship Specialty Start Date End Date Unknown, Provider PCP - General 01/12/23
[2024-08-31] MEDS: ONDANSETRON INJ 4 MG/2 ML VIAL IV PUSH (13:33)
[2024-08-31] MEDS: HYDROmorphone HCL INJ (*CRX) 1 MG/ML SYR IV PUSH ×2 (13:33→15:05)
[2024-08-31 13:46] LABS: Alanine Aminotransferase 133 U/L (6-35); Alkaline Phosphatase 60 U/L (38-126); Anion Gap 18 mmol/L (4-12); Aspartate Amino Transferase 67 U/L (14-36); Bilirubin,Total 0.9 mg/dL (0.2-1.3); Blood Urea Nitrogen 13 mg/dL (7-17); Calcium 9.7 mg/dL (8.4-10.2); Carbon Dioxide 13 mmol/L (22-30); Chloride 106 mmol/L (98-107); Estimated Glomerular Filt Rate > 60; Glucose 90 mg/dL (65-110); Lipase 57 U/L (23-300); Potassium 3.9 mmol/L (3.4-5.0); Sodium 137 mmol/L (137-145)
[2024-08-31 13:55] LABS: Add Urine Microscopic? YES; Appearance Urine Cloudy (Clear); Bacteria Urine 1+ /hpf; Bilirubin Urine Negative (Negative); Blood Urine Negative (Negative); Color Urine Dark Yellow (Yellow); Glucose Urine UA Negative (Negative); Ketones Urine Trace mg/dL (Negative); Leukocyte Esterase Ur Negative LEU/UL (Negative); Need Manual Microscopic Reviewed; Nitrate Urine Negative (Negative); Non Pathogenic Casts 0-2; Protein Urine 2+ mg/dL (Negative); RBC Urine 0-2 /hpf (0-2); Specific Grav Ur 1.025 (1.001-1.035); Squamous Epithelial Cell Urine Moderate /hpf (Few); Urobilinogen Urine 0.2 mg/dL (<2.0); pH Urine 5.5 (5.0-9.0)
[2024-08-31] MEDS: LACTATED RINGERS 1,000 ML 999 ML IV CONT (14:23)
[2024-08-31 15:09] VITALS: BP 160/96; PULSE 96; RESP 20; O2SAT 100
--- NOTE | 2024-08-31 15:15 | ED.GENADULT ---
HPI - General Adult General Chief complaint: Abdominal Pain Stated complaint: abd pain Time Seen by Provider: 08/31/24 13:15 History of Present Illness HPI narrative: [age] old female presents to the emergency department for evaluation for right upper quadrant abdominal associated nausea vomiting and diarrhea it has been ongoing since early Monday morning. Patient initially presented to urgent care for evaluation was referred to the emergency department. Is uncomfortable upon arrival to the ED. Patient does have prior history of PCOS and scoliosis. Patient denies any prior history of abdominal surgeries. Related Data Allergies Allergy/AdvReac Type Severity Reaction Status Date / Time Penicillins Allergy Anaphylaxis Verified 08/31/24 12:35 Review of Systems Review of Systems: All systems reviewed & are unremarkable except as noted in HPI and below PMFSH Past Medical History Medical History Obesity Spina bifida occulta Scoliosis Depression Surgical History Surgical History History of spinal fusion for scoliosis Family History Family History Mother Hypertension Social History Social History Social History: She lives at home with her mother, grandmother and best friend. 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 She has smoked a half a pack per day since she was 16 years old. She drinks 2-3 shots of alcohol every other day. She uses marijuana every other day to assist With her chronic back pain. Primary care physician: None surrogate decision maker: Mother Smoking packs per day: 0.25 Smoking cigarettes per day: 5.0 Years smoked: 4 Smoking pack-years: 1.00 Smoking status: Current every day smoker Tobacco type: cigarettes Alcohol intake: current Drinks per week: 7 Substance use: current Substance use type: marijuana Gender identity (if verbalized by the patient): Female Spiritual care concerns: Yes Exam Narrative: APPEARANCE: Uncomfortable appearing HEAD: normocephalic, atraumatic. EYES: PERRLA/EOMI, conjunctivae clear. NOSE: Normal no drainage EARS:TMS clear with good light reflex. THROAT: Pharynx clear, no exudate. NECK: Supple. No adenopathy, no masses. RESPIRATORY: Airway patent, respirations nonlabored. Clear to auscultation bilaterally, no rales, rhonchi, wheezing. CARDIOVASCULAR: Regular rate and rhythm without murmurs rubs or gallops. ABDOMINAL: Normal bowel sounds, right upper quadrant tenderness to palpation, MUSCULOSKELETAL: Moves all extremities. Strength/ROM intact, No edema, No calf tenderness. NEURO: Alert. Cranial nerves II through XII intact. Grossly intact SKIN: Warm, dry. Normal Color Course Vital Signs Vital signs: Vital Signs Temperature 98.4 F 08/31/24 12:28 Pulse Rate 111 H 08/31/24 12:28 Respiratory Rate 18 08/31/24 12:28 Blood Pressure 148/86 H 08/31/24 12:28 Pulse Oximetry 97 08/31/24 12:28 Oxygen Delivery Room Air 08/31/24 12:28 Temperature 98.4 F 08/31/24 12:28 Pulse Rate 108 H 08/31/24 16:53 Respiratory Rate 20 08/31/24 16:53 Blood Pressure 131/85 08/31/24 16:53 Pulse Oximetry 97 08/31/24 16:53 Oxygen Delivery Room Air 08/31/24 12:28 Medical Decision Making MDM Narrative Medical decision making narrative: [age] old female presents emergency department for evaluation for upper quadrant abdominal pain. Patient is currently afebrile with a leukocytosis and hemoglobin of 16. Patient has no significant abnormalities on her CMP, patient does have mild elevation in her AST is 67 and ALT at 1:33 a.m.. No elevation in alk-phos T bili or lipase. UA was negative for infection. Urine was negative. Ultrasound was negative for acute coli cystitis. CT scan was ordered due to the intensity of the patient's discomfort. Did show enteritis. Patient was updated on the results of the workup and plan for treatment for home and discharge. Differential Diagnosis Differential Diagnosis: Colitis, diverticulitis, acute cholecystitis, biliary colic, enteritis, nausea vomiting Vital Signs Vital Signs: Vital Signs Temperature 98.4 F 08/31/24 12:28 Pulse Rate 111 H 08/31/24 12:28 Respiratory Rate 18 08/31/24 12:28 Blood Pressure 148/86 H 08/31/24 12:28 Pulse Oximetry 97 08/31/24 12:28 Oxygen Delivery Room Air 08/31/24 12:28 Temperature 98.4 F 08/31/24 12:28 Pulse Rate 108 H 08/31/24 16:53 Respiratory Rate 20 08/31/24 16:53 Blood Pressure 131/85 08/31/24 16:53 Pulse Oximetry 97 08/31/24 16:53 Oxygen Delivery Room Air 08/31/24 12:28 Lab Data Lab results reviewed: Yes I reviewed the patient's lab results. 08/31/24 13:17 08/31/24 13:17 Labs: Lab Results 08/31/24 08/31/24 08/31/24 Range/Units 13:11 13:13 13:17 WBC 7.5 (4.5-10.0) K/mm3 RBC 5.04 (4.2-5.4) M/mm3 Hgb 16.0 H (12.0-15.0) g/dL Hct 46.3 (37.0-47.0) % MCV 91.9 (80-100) fl MCH 31.7 (26-34) pg MCHC 34.6 (32-36) g/dl RDW 13.2 (11.5-14.5) % Plt Count 319 (150-375) k/mm3 MPV 10.0 (7.4-10.4) fl Immature Gran % (Auto) 0.4 (0-0.5) % Neut % (Auto) 75.3 H (45.5-73.1) % Lymph % (Auto) 14.7 L (18.3-44.2) % [place] % (Auto) 6.5 (2.6-8.5) % Eos % (Auto) 2.4 (0-4.4) % Baso % (Auto) 0.7 (0.2-1.2) % Lymph # (Auto) 1.11 (0.9-3.2) K/mm3 [place] # (Auto) 0.5 (0.1-0.6) K/mm3 Eos # (Auto) 0.2 (0-0.3) K/mm3 Baso # (Auto) 0.1 (0.0-0.1) K/mm3 Abs Immat Gran (auto) 0.03 (0.00-0.031) K/mm3 Absolute Neuts (auto) 5.7 (1.3-6.7) K/mm3 Absolute Nucleated RBC 0.000 (0.0-0.012) K/mm3 Nucleated RBC % 0.0 (0.0-0.2) % Sodium 137 (137-145) mmol/L Potassium 3.9 (3.4-5.0) mmol/L Chloride 106 (98-107) mmol/L Carbon Dioxide 13 L (22-30) mmol/L Anion Gap 18 H (4-12) mmol/L BUN 13 (7-17) mg/dL Creatinine 0.57 L (0.7-1.0) mg/dL Estim Creat Clear Calc Not Reportable Estimated GFR > 60 (59 - ) Glucose 90 (65-110) mg/dL Calcium 9.7 (8.4-10.2) mg/dL Total Bilirubin 0.9 (0.2-1.3) mg/dL AST 67 H (14-36) U/L ALT 133 H (6-35) U/L Alkaline Phosphatase 60 (38-126) U/L Total Protein 8.0 (6.3-8.2) g/dL Albumin 5.0 (3.5-5.1) g/dL Lipase 57 (23-300) U/L Urine Color Dark yellow (Yellow) Urine Appearance Cloudy H (Clear) Urine pH 5.5 (5.0-9.0) Ur Specific [place] 1.025 (1.001-1.035) Urine Protein 2+ H (Negative) mg/dL Urine Glucose (UA) Negative (Negative) mg/dL Urine Ketones Trace H (Negative) mg/dL Ur Blood (Man) Negative (Negative) Urine Nitrate Negative (Negative) Urine Bilirubin Negative (Negative) Urine Urobilinogen 0.2 (<2.0) mg/dL Add Ur Microanalysis Reviewed Leukocyte Esterase Rfl Negative (Negative) ALLEN/UL Urine RBC 0-2 (0-2) /hpf Urine WBC 6-10 H (0-3) /hpf Ur Squamous Epith Cells Moderate (Few) /hpf Urine Bacteria 1+ H /hpf Urine Casts 0-2 POC Urine HCG, Qual Negative Negative (Negative) Imaging Data Radiologist's impression: Impressions Abdomen Ultrasound 08/31/24 15:25 IMPRESSION: Fat infiltration of the liver. AREA OF FAT SPARING ADJACENT TO THE GALLBLADDER. FOLLOW-UP ADVISED. Otherwise, normal limited abdominal ultrasound. Abdomen/Pelvis CT 08/31/24 17:04 IMPRESSION: 1. Hepatomegaly with fat infiltration. 2. Fluid in the large bowel on the right side suggestive of diarrhea versus enteritis. Discharge Plan Discharge Clinical Impression: Enteritis Abdominal pain Qualifiers: Abdominal location: generalized Qualified Code(s): R10.84 - Generalized abdominal pain Patient Disposition: Home, Self-Care Condition: Stable Instructions: Antibiotic Form, Clear Liquid Diet (ED), Abdominal Pain (ED) Additional Instructions: Clear liquid diet for the next 1-3 days. Zofran as needed for nausea control. Tylenol and ibuprofen for pain control. Have close follow-up with your primary care physician. If you have any worsening symptoms and please call or return to the emergency department. Patient Language: Kyrgyz Prescriptions: New ondansetron 4 mg tablet,disintegrating 4 mg PO Q8H PRN (Reason: nausea and vomiting) Qty: 14 0RF No Action albuterol sulfate 90 mcg/actuation HFA aerosol inhaler 2 puff inhalation Q4-6H PRN (Reason: shortness of breath or wheezing) 30 Days Qty: 8.5 0RF albuterol sulfate 2.5 mg /3 mL (0.083 %) solution for nebulization 2.5 mg inhalation Q6H 30 Days Qty: 360 0RF Follow-up/Referrals: PHYSICIAN,SONOGRAPHY TECHNICIAN [Primary Care Provider] - Stand Alone Forms: Work/School Release IP
[2024-08-31] MEDS: diphenhydrAMINE HCl INJ 50 MG/ML VIAL IV PUSH (16:48)
[2024-08-31 16:53] VITALS: BP 131/85; PULSE 108; RESP 20; O2SAT 97
== END 2024-08-31 18:00 | disposition home or self-care (01) ==
PROVIDERS: General Practice; Emergency Provider Emergency Medicine
DX: K52.9 Noninfective gastroenteritis and colitis, unspecified (principal); R10.84 Generalized abdominal pain; E28.2 Polycystic ovarian syndrome; E66.9 Obesity, unspecified; Z68.43 Body mass index [BMI] 50.0-59.9, adult; M41.9 Scoliosis, unspecified; Q76.0 Spina bifida occulta; F32.A Depression, unspecified; F17.210 Nicotine dependence, cigarettes, uncomplicated; Z98.1 Arthrodesis status; K76.0 Fatty (change of) liver, not elsewhere classified
CPT/HCPCS: 36415; 74177; 76705; 80053; 81001; 81025; 83690; 85025; 96361; 96374; 96375; 96376; 99284; J1171; J1200; J2405; J7120; Q9967

== ENCOUNTER 2025-03-07 14:11 | Outpatient (CLI) | payer BC, SELFPAY ==
--- OUTSIDE RECORDS SUMMARY | 2000-08-20 19:00 | XMS_ITS | Continuity of Care Document ---
Author Organization [facility] Address [address] [place] [address] Phone Care Team Providers Care Acid Dipper Name Role Phone Talha Alcantar MD Unavailable Unavailabl e Advance Directives Directive Yes / No Effective Date File Name No Information Encounters Encounter Description Practice Location Reason(s) For Visit Diagnoses Date Provider Providers Copied on Encounter [facility], [address], [place], [place], [address], tel:[phone] [facility] No Information Ortiz Palencia. [address], [address], [place], [place], [address]. tel:[phone] Family History Family Member Type Diagnosis Age At Onset No Information Payers Payer name Insurance type Covered alliance party ID Authoriza tion(s) No Information Social History [...]
--- OUTSIDE RECORDS SUMMARY | 2025-03-07 14:57 | XMS_ITS | Clinical Summary ---
Author Organization [facility] Address [address] [place] [address] Care Team Providers Care Recycle Driver Name Role Phone Unknown, Provider Primary Care Provider Unavaila ble Source Comments [facility],non-owned Affiliates and Associated Physician Practices is amultiple site organization consisting of ambulatory clinics and hospital sitesin [place], [place], [place] and [place]. This disclosure is being madepursuant to the Care Everywhere program and may not contain all information available regarding this patient. 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 Gender Identity Not on file Sexual Orientation Not on file Plan of Treatment Health Maintenance Due Date Last Done Comments HPV VACCINE (1 - 3-dose series) 2015 HEPATITIS C SCREENING 08/17/2018 DTAP/TDAP/TD VACCINES (1 - Tdap) 2019 HEPATITIS B VACCINE (1 of 3 - 19+ 3-dose series) 2019 PNEUMOCOCCAL VACCINE (1 of 2 - PCV) 2019 CHLAMYDIA/GONORRHEA SCREENING 11/29/2023 11/28/2022 DEPRESSION SCREENING 06/26/2024 COVID-19 VACCINE (1 - 2023-2 5 season) 2025 INFLUENZA VACCINE (#1) 2025 PAP SMEAR 11/28/2025 11/28/2022 ZOSTER VACCINE (1 of 2) 2050 HIV SCREENING Completed 11/28/2022 HIB VACCINE Aged Out No longer eligi ble based on patient's age to complete this topic MENINGOCOCCAL (Group B) VACC INE SHARED DECISION-MAKING Aged Out No longer eligibl e based on patient's age to complete this topic MENINGOCOCCAL GROUPS A/C/Y/W VACCINE Aged Out No longer eligible b ased on patient's age to complete this topic Care Teams Recycle Driver Relationship Specialty Start Date End Date Unknown, Provider PCP - General 01/12/23
--- OUTSIDE RECORDS SUMMARY | 2025-03-07 14:57 | XMS_ITS | Clinical Summary ---
Author Organization [facility] Care Team Providers Care Heat Transfer Technician Name Role Phone Unavailable Primary Care Provider [...] (HPV) Immunization (1 - 3-dose series) 2015 Hepatitis B Immunization (1 of 3 - 19+ 3-dose series) 2019 SARS-COV-2 Immunization ( - season) 2024 Influenza Immunization (#1) 2025 Respiratory Syncytial Virus (RSV) Immunization (Adult) (1 [...]
[2025-03-07 15:52] LABS: Hematocrit 43.7 % (37.0-47.0); Hemoglobin 14.4 g/dL (12.0-15.0); Immature Granulocyte Percent A 0.3 % (0-0.5); Lymphocytes Absolute Auto 3.01 K/mm3 (0.9-3.2); Mean Corpuscular HGB Conc 33.0 g/dl (32-36); Mean Corpuscular Hemoglobin 30.6 pg (26-34); Mean Corpuscular Volume 92.8 fl (80-100); Nucleated Red Blood Cells Absolute Auto 0.000 K/mm3 (0.0-0.012); Nucleated Red Blood Cells Perc 0.0 % (0.0-0.2); Platelet Count Result 401 k/mm3 (150-375); Red Blood Count 4.71 M/mm3 (4.2-5.4); White Blood Count 9.8 K/mm3 (4.5-10.0)
[2025-03-07 16:37] LABS: Thyroid Stimulating Hormone 1.430 uIU/mL (0.465-4.680)
[2025-03-08 07:09] LABS: FSH 5.5 mIU/mL (.); LH 16.0 mIU/mL (.)
== END 2025-03-07 14:12 | disposition home or self-care (01) ==
PROVIDERS: Visit Provider Nurse Practitioner Obstetrics & Gynecology
DX: E28.2 Polycystic ovarian syndrome (principal)
CPT/HCPCS: 36415; 82627; 83001; 83002; 83498; 83525; 84146; 84443; 85025

== ENCOUNTER 2025-03-27 10:22 | Outpatient (CLI) | payer BC, SELFPAY ==
--- OUTSIDE RECORDS SUMMARY | 2000-08-20 19:00 | XMS_ITS | Continuity of Care Document ---
Author Organization [email or web address] Address [address] [place] [address] Phone Care Team Providers Care Fiber Optics Supervisor Name Role Phone Talha Alcantar MD Unavailable Unavailabl e Advance Directives Directive Yes / No Effective Date File Name No Information Encounters Encounter Description Practice Location Reason(s) For Visit Diagnoses Date Provider Providers Copied on Encounter [facility], [address], [place], [place], [id number], tel:[phone] [facility] No Information Ortiz Palencia. [address], [address], [place], [place], [id number]. tel:[phone] Family History Family Member Type Diagnosis Age At Onset No Information Payers Payer name Insurance type Covered libertarian ID Authoriza tion(s) No Information Social History Type Description Quantity Date Captured Comments Sex Female Smoking Status No Information Chief Complaint And Reason For Visit No Information Reason For Referral Reason For Referral No Information History Of Present Illness Encounter Date Complaint History Of Prese nt Illness No Information Functional Status Date Functional Assessmen t No Information Instructions Date Instruction Additional Infor mation No Information Assessments Type Assessment Date No Information Patient Care Teams Name Effective Dates (start - stop) Status Members No Information
--- OUTSIDE RECORDS SUMMARY | 2025-03-27 10:58 | XMS_ITS | Clinical Summary ---
Author Organization [facility] Care Team Providers Care Speech Therapy Assistant Name Role Phone Unavailable Primary Care Provider [...] of 3 - 19+ 3-dose series) 2019 Influenza Immunization (#1) 2025 SARS-COV-2 Immunization ( - season) 2025 Respiratory Syncytial Virus (RSV) Immunization (Adult) [...]
--- OUTSIDE RECORDS SUMMARY | 2025-03-27 10:58 | XMS_ITS | Clinical Summary ---
Author Organization [facility] Address [address] [place] [address] Care Team Providers Care Vp & General Counsel Name Role Phone Unknown, Provider Primary Care Provider Unavaila ble Source Comments [facility],non-owned Affiliates and Associated Physician Practices is amultiple site organization consisting of ambulatory clinics and hospital sitesin [place], [place], [place] and [place]. This disclosure is being madepursuant to the Care Everywhere program and may not contain all information available regarding this patient. 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
[2025-03-27 11:20] LABS: Hematocrit 43.5 % (37.0-47.0); Hemoglobin 14.6 g/dL (12.0-15.0); Immature Granulocyte Percent A 0.3 % (0-0.5); Lymphocytes Absolute Auto 2.82 K/mm3 (0.9-3.2); Mean Corpuscular HGB Conc 33.6 g/dl (32-36); Mean Corpuscular Hemoglobin 30.7 pg (26-34); Mean Corpuscular Volume 91.4 fl (80-100); Nucleated Red Blood Cells Absolute Auto 0.000 K/mm3 (0.0-0.012); Nucleated Red Blood Cells Perc 0.0 % (0.0-0.2); Platelet Count Result 418 k/mm3 (150-375); Red Blood Count 4.76 M/mm3 (4.2-5.4); White Blood Count 9.9 K/mm3 (4.5-10.0)
[2025-03-27 11:40] LABS: Hemoglobin A1C 5.5 % (<5.7)
== END 2025-03-27 10:23 | disposition home or self-care (01) ==
LOC: ANHLAB 10:24
PROVIDERS: Visit Provider Nurse Practitioner Obstetrics & Gynecology
DX: E28.2 Polycystic ovarian syndrome (principal)
CPT/HCPCS: 36415; 82306; 83036; 85025